=== PATIENT | male | born 1935 ===

== ENCOUNTER 2016-07-09 17:11 | Inpatient (IN) | payer OTHER ==
[2016-07-09] MEDS ORDERED: Labetalol 5mg/ml (4ml) IVP STA (17:42)
--- NOTE | 2016-07-09 17:43 | CT ---
PROCEDURE: CT scan brain dated 07/09/2016 HISTORY: Code stroke. COMPARISON: None available. TECHNIQUE: Axial computed tomography images were obtained through the head/brain without intravenous contrast. Radiation dose: Total exam DLP = 1525.98 mGy-cm. This CT exam was performed using one or more of the following dose reduction techniques: Automated exposure control, adjustment of the mA and/or kV according to patient size, and/or use of iterative reconstruction technique. FINDINGS: HEMORRHAGE: No acute parenchymal, subarachnoid or extra-axial hemorrhage. BRAIN: Chronic infarcts are seen in the left posterior temporoparietal watershed zone with a larger chronic infarct left posterior frontoparietal region. In addition, moderate to fairly significant diffuse/confluent chronic periventricular white matter ischemic changes the seen extending peripherally into the deep and subcortical white matter both cerebral hemispheres. Scattered chronic appearing bilateral basal nuclei including coronal radiata lacunar type infarcts. Chronic right cerebellar infarct Note made of slight edematous appearance of the left middle cerebral artery ; rule out dense MCA sign. Consider followup MRI of the brain. Moderate atrophy. The vascular calcifications involving the carotid siphons. VENTRICLES: Ventricles are dilated due to atrophy however no evidence of obstructive hydrocephalus CALVARIUM: Calvarium is intact. PARANASAL SINUSES: There is near complete opacification left maxillary antrum with the areas of low increased density consistent with inspissated secretions. There is also a coarse calcification on as well. Findings consistent with chronic sinusitis however a superimposed fungal infection not excluded. Thickening and sclerosis posterolateral and anterolateral romero of the maxillary antrum consistent with chronic inflammation. Note made of unerupted molar tooth left posterior maxilla. MASTOID AIR CELLS: Unremarkable as visualized. No inflammatory changes. OTHER FINDINGS: None. IMPRESSION: Chronic infarct changes seen in the left posterior temporal parietal watershed zone, left posterior superior frontoparietal watershed zone with scattered bilateral basal nuclei lacunar type infarcts. Moderate to fairly significant chronic white matter ischemic changes. Chronic right cerebellar infarct. There is slightly dense appearance of the left middle cerebral artery; rule out dense MCA sign. Consider followup MRI of the brain. Moderate generalized volume loss. Findings discussed with Dr. Sandoval at approximately 5:30 p.m. with written down and read back verification.
[2016-07-09 17:48] LABS: BASO # 0.1 K/uL (0.0-0.2); BASO % 1.1 % (0.0-2.0); EOS # 0.5 K/uL (0.0-0.7); HEMATOCRIT 52.3 % (35.0-51.0); LYMPH # 1.7 K/uL (1.0-4.3); LYMPH % 17.4 % (20.0-40.0); MEAN CELL VOLUME 86.2 fl (80.0-94.0); MEAN CORPUSCULAR HEMOGLOBIN 27.4 pg (27.0-31.0); MEAN CORPUSCULAR HGB CONC 31.8 g/dL (33.0-37.0); MEAN PLATELET VOLUME 9.4 fl (7.2-11.7); MONO # 1.1 K/uL (0.0-0.8); MONO % 11.3 % (0.0-10.0); NEUT # 6.4 K/uL (1.8-7.0); NEUT % 65.2 % (50.0-75.0); NRBC % 0.2 % (0.0-0.0); RED CELL DISTRIBUTION WIDTH 16.1 % (11.5-14.5); WHITE BLOOD COUNT 9.8 K/uL (4.8-10.8)
--- NOTE | 2016-07-09 18:07 | ED PDOC ---
HPI:STROKE - Time Time: 17:18 - Historian Historian: Partner (), EMS - Chief Complaint Chief Complaint: Mental status change - Onset Date: 07/09/16 Time: 16:55 Onset: Hours (1; last seen well) - Timing Timing: Currently Symptomatic - Context Context: Home (found on floor of bedroom) - Associated Symptoms Associated symptoms:: Anticoagulant use (effient) - TPA Positive for Contraindication: No Reason tPA is not being Administered: other diagnosis possible besides CVA, NIHSS >24, possible seizure - Notes: Notes:: Ruslan Talbot is a 80 year old male, with a past medical history of known cerebrovascular accidents, hypertension, hypercholesterolemia, and cardia arrhythmia, who presents to the emergency department via EMS for the evaluation of altered mental status. As per patient's , patient collapsed 20 minutes prior to arriving to the ER, falling backwards. Before the incident, he was walking outside with his who states that he was in a normal state of wellness, ambulatory, alert, and oriented before collapsing, becoming incontinent of urine and altered. EMS report that patient has a left gaze preference and is hypertensive. 12L in field showed paced rhythm per EMS. Of note, patient takes Effient, antihypertensives, and Digoxin. Patient is allergic to Aspirin. HPI is limited due to patient's nonverbal state. Code stroke activated on eval on arrival. PMD: Non CPH Provider in [place] NIHSS Stroke Scale - How Severe is the Stroke Level of Consciousness: 2=Obtunded LOC to Questions: 2=Neither correct LOC to commands: 2=Neither correct Best Gaze: 1=Partial gaze palsy Visual: 2=Complete hemianopia Facial: 0=Normal Motor Arm - Left: 3=No effort against gravity (falls immediately) Motor Arm - Right: 3=No effort against gravity (falls immediately) Motor Leg - Left: 3=No effort against gravity (falls immediately) Motor Leg - Right: 3=No effort against gravity (falls immediately) Limb Ataxia: 2=Present both Sensory: 1=Mild to moderate loss Best Language: 3=Mute Dysarthia: 2=Severe, near unintelligible or worse Extinction & Inattention (Neglect): 1=Partial neglect (mild edna-attention) Score: 30 rTPA Inclusion/Exclusion - Refusal of Treatment Patient Refused Treatment: No - Inclusion Criteria for Altepase Patient is 18 years or Older: Yes The Clinical Diagnosis of Ischemic Stroke That is Causing a Potentially Disabling Neurological Deficit: Yes Time of Onset is Well Established to be Less Than 270 Minute Before Treatment Would Begin: Yes Risk/Benefit Discussed With Patient/Family Member Present: Yes - Exclusion Criteria for Altepase Uncontrolled Hypertension at Time of Treatment (Systolic BP above 185 or Diastolic BP above 110 mmHg): Yes Evidence of an Intracranial Hemorrhage: No Evidence of Major Acute Infarct With Signs Greater Than 1/3 MCA Territory: Yes - Warning to TPA With Conditions Additional Condition (For 3-4.5 Hour Window): Any anticoagulant use prior to admission (Even if INR less than 1.7), NIHSS Above 25 Past Medical History Reviewed: Historical Data, Nursing Documentation, Vital Signs Vital Signs: Last Vital Signs Temp 98.6 F 07/09/16 17:38 Pulse 60 07/09/16 17:38 Resp 28 H 07/09/16 17:38 BP 210/121 H 07/09/16 17:38 Pulse Ox 99 07/09/16 17:38 - Medical History PMH: Cardia Arrhythmia, CVA, HTN, Hypercholesterolemia - Surgical History Surgical History: Pacemaker - Family History Family History: States: No Known Family Hx - Social History Current smoker - smoking cessation education provided: No Ex-Smoker (has not smoked in the last 12 months): No Alcohol: Occasional Drugs: Denies - Home Medications Home Medications: Ambulatory Orders Medication Instructions Recorded Atorvastatin [Lipitor] 20 mg PO DAILY 07/09/16 Digoxin [Lanoxin] 125 mcg PO DAILY 07/09/16 Enalapril Maleate [Vasotec] 5 mg PO DAILY 07/09/16 Furosemide [Lasix] 40 mg PO DAILY 07/09/16 Isosorbide Mononitrate [Imdur] 30 mg PO DAILY 07/09/16 Levothyroxine [Synthroid] 75 mcg PO DAILY 07/09/16 Montelukast [Singulair] 10 mg PO DAILY 07/09/16 Prasugrel [Effient] 10 mg PO DAILY 07/09/16 Ranitidine HCl [Zantac] 300 mg PO DAILY 07/09/16 - Allergies Allergies/Adverse Reactions: Allergies Allergy/AdvReac Type Severity Reaction Status Date / Time No Known Allergies Allergy Verified 07/09/16 17:18 Review of Systems Review Of Systems: ROS cannot be obtained secondary to pt's inabilty to answer questions. (ROS limited due to altered mental status) Cardiovascular: Negative for: Chest Pain Neurological: Positive for: Altered Mental Status, Other (stroke). Negative for : Weakness, Headache Physical Exam - Reviewed Nursing Documentation Reviewed: Yes Vital Signs Reviewed: Yes - Physical Exam Appears: Positive for: In Acute Distress (obtunded but maintaining airway) Head Exam: Positive for: ATRAUMATIC, NORMAL INSPECTION, NORMOCEPHALIC Skin: Positive for: Normal Color, Warm, DRY Eye Exam: Positive for: EOMI, Normal appearance, PERRL ENT: Positive for: Normal ENT Inspection Neck: Positive for: Normal, Painless ROM Cardiovascular/Chest: Positive for: Regular Rate, Rhythm Respiratory: Positive for: CNT, Normal Breath Sounds Pulses-Radial (L): 2+ Pulses-Radial (R): 2+ Gastrointestinal/Abdominal: Positive for: Bowel Sounds, Soft. Negative for: Tenderness, Guarding Back: Positive for: Normal Inspection Extremity: Positive for: Normal ROM, Swelling (trace b/l LE edema). Negative for: Deformity DTR - Knee (R): 1+ DTR - Knee (L): 1+ Neurologic/Psych: Positive for: Alert (intermittently), prestidigitator II-XII (no facial asymmetry), Motor/Sensory Deficits (+symmetric withdrawl to pain, reflexes diminshed b/l patellar; initial L gaze preference but resolved.), Aphasia. Negative for: Oriented, Facial Droop - Laboratory Results Result Diagrams: 07/09/16 17:39 07/09/16 20:00 - ECG ECG: Positive for: Interpreted By Me Interpretation Of ECG: paced rhythm O2 Sat by Pulse Oximetry: 99 (RA) Pulse Ox Interpretation: Normal - Radiology X-Ray: Interpreted by Me X-Ray Interpretation: Other (+pacer\) - Critical Care Total Time (In Min): 75 Comments: pt required immediate and sustained bedside attention due to AMS and unstable vital signs Medical Decision Making Medical Decision Makin:18 Initial Impression: Cerebrovascular accident vs seizure vs metabolic derangement vs cardiac arrythmia with anoxia vs other Initial Plan: * Code Stroke * CT Head and Neck Bundle * Chest X-Ray * EKG * Type and Screen * CBC * CMP (x2) * PT/PTT * Hemoglobin A1C * Lipid Panel * Troponin I * Digoxin * Trandate 20 mg IVP * Glucose, Blood, POC * Swallow Evaluation 17:25 Stroke alert initiated. Discussed case with neurologist Dr Orellana who recommends CT Angiogram given patient's presentation. Patient is not a candidate for MRI due to pacemaker placement. CT brain d/w radiologist. CTA brain/neck d/w radiologist no evidence of large vessel occlusion. Dr Orellana stroke neurologist in ED, unclear etiology, possible nonconvulsive seizure vs CVA, ativan 2mg given on rec neurology, not TPA or interventional candidate. Needs EEG, neurology to arrange. Dr Orellana recommended loading plavix 300mg via NGT as allergic to ASA, already taking effient. Labetolol given for marked hypertension, Dr Orellana states permissive hypertension for now, BP 180- 200systolic ok. On re-eval will open eyes to command but follows commands intermittently. No facial droop. Equal/symmetric strength upper extremities. Case d/w daughter and . Labs reviewed, etoh neg, WBC normal, trop neg. Initial K+ elevated but hemolyzed. Admit Dr Sandoval ICU for further care. Scribe Attestation: Documented by Ez Ray, acting as a scribe for Abelardo Sandoval III, MD. Provider Scribe Attestation: All medical record entries made by the Scribe were at my direction and personally dictated by me. I have reviewed the chart and agree that the record accurately reflects my personal performance of the history, physical exam, medical decision making, and the department course for this patient. I have also personally directed, reviewed, and agree with the discharge instructions and disposition. Disposition - Clinical Impression Clinical Impression: Altered mental status - Patient ED Disposition Is Patient to be Admitted: Yes Counseled Patient/Family Regarding: Studies Performed - Disposition Disposition Time: 19:45 Condition: STABLE - Pt Status Changed To: Hospital Disposition Of: Inpatient - Admit Certification Admit to Inpatient:: After my assessment, the patient will require hospitalization for at least two midnights. This is because of the severity of symptoms shown, intensity of services needed, and/or the medical risk in this patient being treated as an outpatient. - POA Present On Arrival: Falls Or Trauma
[2016-07-09 18:08] LABS: ALB/GLOB RATIO 1.1 (1.0-2.1); ALKALINE PHOSPHATASE 113 U/L (38-126); AST/SGOT 67 U/L (17-59); BILIRUBIN,TOTAL 1.9 mg/dl (0.2-1.3); BLOOD UREA NITROGEN 25 mg/dl (9-20); CALCIUM 9.3 mg/dL (8.4-10.2); CARBON DIOXIDE 23 mmol/L (22-30); CHLORIDE 106 mmol/L (98-107); CHOLESTEROL 209 mg/dL (0-199); GFR AFRICAN-AMERICAN > 60; GLUCOSE,RANDOM 108 mg/dL (75-110); SODIUM 140 mmol/l (132-148); TOTAL PROTEIN 9.4 G/DL (6.3-8.2)
[2016-07-09 18:10] LABS: ALT/SGPT < 6 U/L (21-72)
[2016-07-09 18:25] LABS: POTASSIUM 6.8 MMOL/L (3.6-5.0)
--- NOTE | 2016-07-09 18:40 | CT ---
PROCEDURE: CT Angiography of the Brain. HISTORY: AMS COMPARISON: Comparison is made to the previous CT of the head without contrast done on the same day TECHNIQUE: CT angiography of the intracranial arteries was performed. Coronal and sagittal maximum intensity projection reformated images were generated. This CT exam was performed using one or more of the following dose reduction techniques: Automated exposure control, adjustment of the mA and/or kV according to patient size, and/or use of iterative reconstruction technique. FINDINGS: INTERNAL CEREBRAL ARTERIES: Diffuse irregularity and foci of calcifications seen suggestive of atherosclerotic disease. The skull base, petrous, cavernous and supraclinoid segments are bilaterally widely patient. ANTERIOR CEREBRAL ARTERIES: Unremarkable. A1 and A2 segments are widely patent. Smaller distal branches unremarkable, as visualized. MIDDLE CEREBRAL ARTERIES: Unremarkable. M1 and M2 segments are widely patent. Perisylvian branches grossly symmetric. POSTERIOR CIRCULATION: Basilar Artery: The basilar artery is small in size. Distal Vertebral Arteries: The distal portion of the right vertebral artery is not visualized. Posterior Cerebral Arteries: Unremarkable. Posterior Inferior Cerebellar Arteries: Unremarkable. ANEURYSM/ VASCULAR MALFORMATIONS: None. OTHER FINDINGS: None. IMPRESSION: No evidence of seen stenosis or occlusion in the middle cerebral arteries. The distal left vertebral artery is not visualized. Small size basilar artery. [id number] atherosclerotic disease
--- NOTE | 2016-07-09 20:04 | CP.PCM.CON ---
History of Present Illness - History of Present Illness History of Present Illness: Mr. Talbot is a 80-year-old man with a past medical history of chronic left MCA territory stroke in the past, HTN, HLD, who is on Effient (allergic to aspirin). According to the patient's , he has been complaining of feeling unwell all day. They were out shopping and then returned to their assisted living facility. They were in the elevator when he suddenly fell back and hit his head. She did not notice any convulsions, but he immediately became unresponsive. EMS was called and noted that he was incontinent of urine. He was brought to the ED, and was not responding to painful stimulus initially. His NIHSS was calculated to be a 32. He was not a candidate for IV tPA due to witnessed fall with possible seizure, and extremely high NIHSS. Furthermore, his BP on presentation was 220/120 mm Hg. He was given labetelol and started to improve. He moved all his extremities to painful stimulus and was able to sit up for the chest X-ray. He opened his eyes and did not have any significant asymmetry. He was given 2 mg of ativan without a significant response. Review of Systems - Review of Systems Systems not reviewed;Unavailable: Altered Mental Status All systems: reviewed and no additional remarkable complaints except Past Patient History - Past Social History Alcohol: Occasional Drugs: Denies - CARDIAC Hx Cardia Arrhythmia: Yes Hx Hypercholesterolemia: Yes Hx Hypertension: Yes Hx Pacemaker: Yes - NEUROLOGICAL Other/Comment: stroke in [place] - PSYCHIATRIC Hx Substance Use: No - SURGICAL HISTORY Other/Comment: pacemaker Meds Allergies/Adverse Reactions: Allergies Allergy/AdvReac Type Severity Reaction Status Date / Time No Known Allergies Allergy Verified 07/09/16 17:18 Physical Exam - Constitutional Appears: Confused - Head Exam Head Exam: ATRAUMATIC, NORMAL INSPECTION, NORMOCEPHALIC - Eye Exam Eye Exam: EOMI, Normal appearance, PERRL - ENT Exam ENT Exam: Mucous Membranes Moist, Normal Exam - Neck Exam Neck exam: Positive for: Normal Inspection - Respiratory Exam Respiratory Exam: Clear to Auscultation Bilateral, NORMAL BREATHING PATTERN - Cardiovascular Exam Cardiovascular Exam: REGULAR RHYTHM, +S1, +S2 - Neurological Exam Additional comments: Opens eyes to voice, does not follow commands, withdraws all extremities to pain (more on the right), no facial asymmetry noted, upgoing plantar response on the right. Reflexes are normal. - Skin Skin Exam: Dry, Intact, Normal Color, Warm Results - Vital Signs Recent Vital Signs: Last Vital Signs Temp 98.6 F 07/09/16 17:38 Pulse 60 07/09/16 18:34 Resp 28 H 07/09/16 18:34 BP 176/95 H 07/09/16 18:34 Pulse Ox 99 07/09/16 18:38 - Labs Result Diagrams: 07/09/16 17:39 07/09/16 17:39 Labs: Laboratory Results - last 24 hr 07/09/16 07/09/16 07/09/16 17:39 17:39 18:13 WBC 9.8 RBC 6.07 H Hgb 16.6 Hct 52.3 H MCV 86.2 MCH 27.4 MCHC 31.8 L RDW 16.1 H Plt Count 155 MPV 9.4 Neut % (Auto) 65.2 Lymph % (Auto) 17.4 L [place] % (Auto) 11.3 H Eos % (Auto) 5.0 H Baso % (Auto) 1.1 Neut # 6.4 Lymph # 1.7 [place] # 1.1 H Eos # 0.5 Baso # 0.1 Sodium 140 Potassium 6.8 H* Chloride 106 Carbon Dioxide 23 Anion Gap 18 BUN 25 H Creatinine 1.1 Est GFR ( Amer) > 60 Est GFR (Non-Af Amer) > 60 Random Glucose 108 Calcium 9.3 Total Bilirubin 1.9 H AST 67 H ALT < 6 L Alkaline Phosphatase 113 Troponin I 0.0150 Total Protein 9.4 H Albumin 4.9 Globulin 4.5 H Albumin/Globulin Ratio 1.1 Triglycerides 217 H Cholesterol 209 H LDL Cholesterol Direct 138 H HDL Cholesterol 37 Digoxin 0.5 L BBK History Checked 07/09/16 18:48 WBC RBC Hgb Hct MCV MCH MCHC RDW Plt Count MPV Neut % (Auto) Lymph % (Auto) [place] % (Auto) Eos % (Auto) Baso % (Auto) Neut # Lymph # [place] # Eos # Baso # Sodium Potassium Chloride Carbon Dioxide Anion Gap BUN Creatinine Est GFR ( Amer) Est GFR (Non-Af Amer) Random Glucose Calcium Total Bilirubin AST ALT Alkaline Phosphatase Troponin I Total Protein Albumin Globulin Albumin/Globulin Ratio Triglycerides Cholesterol LDL Cholesterol Direct HDL Cholesterol Digoxin BBK History Checked No verified bt - Imaging and Cardiology CT scan - head Status: Image reviewed by me, Report reviewed by me (CT head shows chronic infarcts predominantly on the left side involving the posterior frontal and parietal regions. CTA of the head/neck does not show any occlusions.) Assessment & Plan (1) Acute encephalopathy Assessment and Plan: The differential diagnosis includes a large bihemispheric stroke, non- convulsive status epilepticus, acute hypertensive encephalopathy or toxic- metabolic encephalopathy. The patient cannot obtain an MRI due to his pacemaker. I recommend admission to the ICU for close observation, obtaining an EEG, giving 4 mg of Ativan, give 300 mg of Plavix, urine toxicology, urinalysis, CBC/CMP, TSH, repeat CT head in the AM. Thank you for this consultation. Status: Acute Priority: High
[2016-07-09 20:26] LABS: PARTIAL THROMBOPLASTIN TIME 25.4 SECONDS (23.3-32.5)
[2016-07-09 20:36] LABS: ALB/GLOB RATIO 1.1 (1.0-2.1); ALCOHOL SERUM < 10 mg/dl (0-10); ALKALINE PHOSPHATASE 119 U/L (38-126); ALT/SGPT 23 U/L (21-72); AST/SGOT 31 U/L (17-59); BILIRUBIN,TOTAL 0.5 mg/dl (0.2-1.3); BLOOD UREA NITROGEN 25 mg/dl (9-20); CALCIUM 9.4 mg/dL (8.4-10.2); CARBON DIOXIDE 21 mmol/L (22-30); CHLORIDE 106 mmol/L (98-107); GFR AFRICAN-AMERICAN > 60; GLUCOSE,RANDOM 181 mg/dL (75-110); POTASSIUM 4.5 MMOL/L (3.6-5.0); SODIUM 140 mmol/l (132-148); TOTAL PROTEIN 7.9 G/DL (6.3-8.2)
--- NOTE | 2016-07-09 21:55 | CP.PCM.HP ---
History of Present Illness - History of Present Illness History of Present Illness: PCP: Not on staff Chief complaint: AMS HPI: The hx is obtained from the Patients brand ambassadors promotional sales, the EMS and the medical records, as the patient is unresponsive. He is a 80 years old male from [place] Here 2 weeks on vacation. He has hx of HTN, HLD Permanent Pacemaker in place and CVA. According to the Electric Track Switch Maintainer , he is normally alert walking and talking. On the day of admission he was in [facility] room talking when he fell back hitting his head and becoming unresponsive. No foaming at the mouth but EMS found him incontinent of urine. In the ED the patient had a NIHS score of 32 with a BP of 220/120mmHg and was treated with Labetalol. He was not a candidate for TPA. The patient responded to sternal rub by opening the eyes and eddie the facial muscles. PMH: Cardiac arrhythmia; HLD; HTN; CVA in [place]; Hypothyroidism - Asthma?; CHF?; PSH: Pacemaker insertion SH: Occasional Alcohol; Ex Smoker; No illegal drug use; Reside at an Assisted Living facility FH: Unknown family hx Allergies: ASA Medication: Lipitor; Lanoxin; Vasotec; Lasix; Imdur; Synthroid; Singulair; Santax; Effient Present on Admission - Present on Admission Any Indicators Present on Admission: No History of DVT/PE: No History of Uncontrolled Diabetes: No Urinary Catheter: No Decubitus Ulcer Present: No Review of Systems - Review of Systems Systems not reviewed;Unavailable: Altered Mental Status Review of Systems: Limited review of system as the patient is unresponsive Past Patient History - Past Social History Smoking Status: Former Smoker Chewing Tobacco Use: No Cigar Use: No Alcohol: Occasional Drugs: Denies Home Situation {Lives}: With Family - CARDIAC Hx Cardia Arrhythmia: Yes Hx Hypercholesterolemia: Yes Hx Hypertension: Yes Hx Pacemaker: Yes - PULMONARY Hx Respiratory Disorders: No (Unknown) - NEUROLOGICAL Hx Neurological Disorder: Yes Other/Comment: stroke in [place] - HEENT Hx HEENT Problems: No - RENAL Hx Chronic Kidney Disease: No - ENDOCRINE/METABOLIC Hx Hypothyroidism: Yes - HEMATOLOGICAL/ONCOLOGICAL Hx Blood Disorders: No - INTEGUMENTARY Hx Dermatological Problems: No - MUSCULOSKELETAL/RHEUMATOLOGICAL Hx Musculoskeletal Disorders: No (Unknown) - GASTROINTESTINAL Hx Gastrointestinal Disorders: No - GENITOURINARY/GYNECOLOGICAL Hx Genitourinary Disorders: No - PSYCHIATRIC Hx Psychophysiologic Disorder: No Hx Substance Use: No - SURGICAL HISTORY Hx Surgeries: Yes Other/Comment: pacemaker - ANESTHESIA Hx Anesthesia: Yes Hx Anesthesia Reactions: No Meds Allergies/Adverse Reactions: Allergies Allergy/AdvReac Type Severity Reaction Status Date / Time No Known Allergies Allergy Verified 07/09/16 17:18 Physical Exam - Constitutional Appears: No Acute Distress - Head Exam Head Exam: ATRAUMATIC, NORMAL INSPECTION, NORMOCEPHALIC - Eye Exam Additional comments: Patient resisting at passive opening of eyes. Spontaneous opening of eyes to painful stimuli.Pupils 2mm recting sluggish to light - ENT Exam ENT Exam: Mucous Membranes Moist, Normal Exam, Normal External Ear Exam, Normal Oropharynx - Neck Exam Neck exam: Positive for: Full Rom, Normal Inspection. Negative for: Lymphadenopathy - Respiratory Exam Respiratory Exam: absent: Rales, Rhonchi, Wheezes - Cardiovascular Exam Cardiovascular Exam: REGULAR RHYTHM, RRR, +S1, +S2. absent: Gallop, JVD - GI/Abdominal Exam GI & Abdominal Exam: Normal Bowel Sounds, Soft. absent: Mass, Organomegaly - Rectal Exam Rectal Exam: Deferred - Extremities Exam Extremities exam: Positive for: pedal edema Additional comments: 2+ edema to both lower extremities - Back Exam Back exam: NORMAL INSPECTION - Neurological Exam Additional comments: Opens eyes to sternal rub, motor strength 1/5 at the right upper and right lower extremities. Tone conserved at both upper extremities, no facial droop. Plantar reflex is withdrawal in both feet right more than left. - Skin Skin Exam: Dry, Intact, Normal Color, Warm Results - Vital Signs Recent Vital Signs: Last Vital Signs Temp 98.6 F 07/09/16 17:38 Pulse 60 07/09/16 18:34 Resp 28 H 07/09/16 18:34 BP 176/95 H 07/09/16 18:34 Pulse Ox 99 07/09/16 18:38 - Labs Result Diagrams: 07/09/16 17:39 07/09/16 20:00 Labs: Laboratory Results - last 24 hr 07/09/16 07/09/16 07/09/16 17:39 17:39 17:39 WBC 9.8 RBC 6.07 H Hgb 16.6 Hct 52.3 H MCV 86.2 MCH 27.4 MCHC 31.8 L RDW 16.1 H Plt Count 155 MPV 9.4 Neut % (Auto) 65.2 Lymph % (Auto) 17.4 L Marinette % (Auto) 11.3 H Eos % (Auto) 5.0 H Baso % (Auto) 1.1 Neut # 6.4 Lymph # 1.7 Marinette # 1.1 H Eos # 0.5 Baso # 0.1 PT 11.5 H INR 1.11 H APTT 25.4 Sodium 140 Potassium 6.8 H* Chloride 106 Carbon Dioxide 23 Anion Gap 18 BUN 25 H Creatinine 1.1 Est GFR ( Amer) > 60 Est GFR (Non-Af Amer) > 60 Random Glucose 108 Calcium 9.3 Total Bilirubin 1.9 H AST 67 H ALT < 6 L Alkaline Phosphatase 113 Troponin I 0.0150 Total Protein 9.4 H Albumin 4.9 Globulin 4.5 H Albumin/Globulin Ratio 1.1 Triglycerides 217 H Cholesterol 209 H LDL Cholesterol Direct 138 H HDL Cholesterol 37 Digoxin Alcohol, Quantitative BBK History Checked 07/09/16 07/09/16 07/09/16 18:13 18:48 20:00 WBC RBC Hgb Hct MCV MCH MCHC RDW Plt Count MPV Neut % (Auto) Lymph % (Auto) Marin[place] % (Auto) Eos % (Auto) Baso % (Auto) Neut # Lymph # Marinette # Eos # Baso # PT INR APTT Sodium 140 Potassium 4.5 Chloride 106 Carbon Dioxide 21 L Anion Gap 18 BUN 25 H Creatinine 1.1 Est GFR ( Amer) > 60 Est GFR (Non-Af Amer) > 60 Random Glucose 181 H Calcium 9.4 Total Bilirubin 0.5 AST 31 ALT 23 Alkaline Phosphatase 119 Troponin I Total Protein 7.9 Albumin 4.2 Globulin 3.7 Albumin/Globulin Ratio 1.1 Triglycerides Cholesterol LDL Cholesterol Direct HDL Cholesterol Digoxin 0.5 L Alcohol, Quantitative < 10 BBK History Checked No verified bt - EKG Data EKG comments: Regular paced and captured beats 60/min - Imaging and Cardiology Chest x-ray Status: Image reviewed by me Additional comment: Bilateral lung congestion. Pacemaker at left chest wall with leads to the right Atrium and right Ventricle CT scan - head Status: Image reviewed by me, Report reviewed by me Additional comment: Chronic infarct at left posterior tempo-parietal Chronic right Cerebellar infarct Head and Neck CTA Status: Report reviewed by me Additional comment: No stenosis in middle cerebral artery. Assessment & Plan - Assessment and Plan (Free Text) Assessment: #.AMS #. Acute Hypertensive encephalopathy #. Dehydration #. Hypothyroidism #. r/o CHF #. Chronic Cerebro vascular disease Plan: 80 years old male from [place] Here 2 weeks on vacation. He has hx of HTN, HLD Permanent Pacemaker in place and CVA. According to the Electric Track Switch Maintainer , he is normally alert walking and talking. On the day of admission he was in the room talking when he fell back hitting his head and becoming unresponsive. In the ED the patient had a BP of 220/120mmHg and was treated with Labetalol. He was not a candidate for TPA. #.AMS Probably secondary to a Seizure vs CVA - Dr Orellana neurology consult is Appreciated - Admit to ICU - Neuro checks Q2 hrs - EEG to r/o Seizure activity - Follow Repeat CT head #. Acute Hypertensive encephalopathy - Treat Blood pressure If SBP>180 and DBP>110 -Follow Blood pressures #. Dehydration - Follow renal labs - Hold Lasix at present #. Hypothyroidism - Synthroid - Follow Synthroid #. r/o CHF in patint with Leg edema, X Ray chest with bilateral infiltrates, and on medication used in CHF - Consult Dr Douglas Cardiology - Continue Vasotec, Imdur, - Hold Lasix #. Chronic Cerebro vascular disease - Lipitor - Plavix as patient is allergic to ASA. No Effient on formulary #. Stress ulcer prophylaxis with Pepcid #. DVT Prophylaxis with SCD #. Code Status: Full - Date & Time Date: 07/09/16 Time: 21:55
[2016-07-09 23:40] VITALS: BMI 24.7
[2016-07-10] MEDS: Dextrose 5%/0.45% NS 1,000 ML IV SCH (02:00)
[2016-07-10] MEDS: EnalaprilAT 1.25 mg/ml Inj IV SCH ×4 (04:00→21:56)
[2016-07-10 05:29] LABS: HEMATOCRIT 49.2 % (35.0-51.0); MEAN CELL VOLUME 85.4 fl (80.0-94.0); MEAN CORPUSCULAR HEMOGLOBIN 27.1 pg (27.0-31.0); MEAN CORPUSCULAR HGB CONC 31.7 g/dL (33.0-37.0); RED CELL DISTRIBUTION WIDTH 16.5 % (11.5-14.5); WHITE BLOOD COUNT 12.4 K/uL (4.8-10.8)
[2016-07-10 05:33] LABS: BLOOD UREA NITROGEN 23 mg/dl (9-20); CALCIUM 9.5 mg/dL (8.4-10.2); CARBON DIOXIDE 21 mmol/L (22-30); CHLORIDE 107 mmol/L (98-107); GFR AFRICAN-AMERICAN > 60; GLUCOSE,RANDOM 168 mg/dL (75-110); POTASSIUM 4.3 MMOL/L (3.6-5.0); SODIUM 142 mmol/l (132-148)
[2016-07-10] MEDS: Levothyroxine 100 mcg (0.1 mg) Inj IVP SCH (05:40)
[2016-07-10 06:00] LABS: THYROID STIMULATING HORMONE 0.73 mIU/ML (0.46-4.68)
--- NOTE | 2016-07-10 09:08 | CP.CCUPN ---
CCU Subjective - Physician Review Subjective (Free Text): LAND DEPARTMENT HEAD PROGRESS NOTE Patient examined, interim events reviewed: Awake and stares at me, nonverbal and non-interactive to verbal commands or questions, even via hvac commercial salesperson. NGT in place, no vomiting, no cough, no other distress noted. Afebrile, SBP 160s to 180s, HR 60 paced, RR 22, SPO2 98 % on NC. I/Os last 12H = 178/500ml. NGT placed in ER for enteral route medication administration. ROS: All pertinent Nursing notes and all other 10+ systems reviewed: otherwise as above. PMSFH: No other new pertinent information relative to current medical problems noted. No other distress noted: EXAM- HEENT: no icterus, pupils midline, equal and reactive, no nystagmus NECK: no visible JVD, supple, carotids equal upstroke bilat/no bruits, no neck tenderness CHEST: decreased BS bases, no wheezes audible. HEART: regular, distant, S1S2, no murmur audible, no rubs. ABD: soft, flat, no increased distention, no focal tenderness, no HSM. BS hypoactive. EXT: +2 LE edema, no peripheral/ digital cyanosis, no calf tenderness or palpable cords, distal pulses intact and symmetrical, SCDs on bilaterally. NEURO: withdraws all extremities to pain stimulus SKIN: no rashes LABS: WBC= 12.4 HGB= 15.6 PLTs = 138K Coags: acceptable Na= 142 K= 4.3 CL= 107 HCO3= 21 BUN/Cr= 23/1.0 BS= 168 Urine tox negative Assessment: 1. AMS after a Fall 2. Accelerated Hypertension with possible Encephalopathy 3. r/o NCSE, CVA, other SPORTS MANAGER infection / Encephalitis 4. Mild Azotemia, r/o Rhabdomyolysis 5. h/o PPM , Hypertensive Heart Disease, Hypothyroidism PLAN: 1. Consider repeat CT Brain imaging for any delayed acute pathology. 2. On Effient anti-platelet therapy, would continue for now if repeat CT Brain is negative. 3. BP levels currently at satisfactory and acceptable reduction levels in the interim; as compared to admission BP levels with SBP above 200s. No further treatment unless MAP exceeds 120. 4. ECHO, EEG. 5. Maintain neurochecks, seizure precautions, HOB elevation, airway self- protect mechanisms intact. 6. Check and monitor serial CPK levels. If significantly elevated, cautious IVF hydration.
[2016-07-10] MEDS: Digoxin 500 mcg/2ml (0.5 mg/2ml) Inj IVP SCH (10:02)
[2016-07-10 10:27] LABS: ABG ALLEN TEST YES; ARTERIAL BLOOD GAS HCO3 24.8 mmol/L (21-28); ARTERIAL BLOOD GAS PH 7.42 (7.35-7.45); ARTERIAL BLOOD GAS PO2 94 mm/Hg (80-100)
--- NOTE | 2016-07-10 13:36 | RAD ---
HISTORY: AMS COMPARISON: No prior. FINDINGS: LUNGS: Bilateral interstitial prominence, question acute versus chronic. PLEURA: No significant pleural effusion identified, no pneumothorax apparent. CARDIOVASCULAR: Pacemaker and leads in place. OSSEOUS STRUCTURES: No significant abnormalities. VISUALIZED UPPER ABDOMEN: Normal. OTHER FINDINGS: None. IMPRESSION: Bilateral interstitial prominence, question acute versus chronic.
--- NOTE | 2016-07-10 13:39 | RAD ---
HISTORY: NGT confirm COMPARISON: No prior. FINDINGS: LUNGS: Mild bilateral interstitial prominence. PLEURA: No significant pleural effusion identified, no pneumothorax apparent. CARDIOVASCULAR: Normal. Pacemaker and leads in place. OSSEOUS STRUCTURES: No significant abnormalities. VISUALIZED UPPER ABDOMEN: Normal. OTHER FINDINGS: None. IMPRESSION: Mild bilateral pulmonary interstitial prominence.
--- NOTE | 2016-07-10 14:17 | CT ---
PROCEDURE: CT HEAD WITHOUT CONTRAST. HISTORY: AMD/Unresponsiveness COMPARISON: Comparison made with CT scan of the brain 07/09/2016. TECHNIQUE: Axial computed tomography images were obtained through the head/brain without intravenous contrast. Radiation dose: Total exam DLP = 1669.36 mGy-cm. This CT exam was performed using one or more of the following dose reduction techniques: Automated exposure control, adjustment of the mA and/or kV according to patient size, and/or use of iterative reconstruction technique. FINDINGS: HEMORRHAGE: No acute parenchymal, subarachnoid or extra-axial hemorrhage. BRAIN: 1st VENTRICLES: Unremarkable. No hydrocephalus. CALVARIUM: No acute calvarial fractures. PARANASAL SINUSES: Unremarkable as visualized. No significant inflammatory changes. MASTOID AIR CELLS: Unremarkable as visualized. No inflammatory changes. OTHER FINDINGS: Re- demonstrated are changes of bilateral cataract surgery. IMPRESSION: Large acute infarct involving branches of the which appears to predominantly involve of branches of the left anterior and to a lesser degree left middle cerebral arteries. The aforementioned large acute infarct and its attendant cytotoxic edema result in the overlying sulcal effacement and mild compression of the left lateral ventricle particularly the left frontal horn. Re- demonstrated are large chronic infarct changes in the left posterior frontoparietal region near the vertex as well as slightly smaller chronic infarct left posterior temporoparietal watershed zone. Chronic right cerebellar infarct also noted. Additionally, moderate chronic periventricular white matter ischemic changes and chronic bilateral basal nuclei lacunar type infarcts also again noted.
--- NOTE | 2016-07-10 14:51 | CP.PCM.PN ---
Subjective - Date & Time of Evaluation Date of Evaluation: 07/10/16 Time of Evaluation: 13:00 - Subjective Subjective: Mr. Talbot was seen and examined this morning at bedside in the ICU. He continued to have no meaningful communication and very little response to painful stimulus. NIHSS was over 27. I reviewed the EEG results, which showed left side slowing and several sharp wave discharges. Repeat CT head showed a large area of new left MCA infarct. Objective - Vital Signs/Intake and Output Vital Signs (last 24 hours): Temp Pulse Resp BP Pulse Ox 99 F 60 24 176/78 H 97 07/10/16 08:00 07/10/16 08:00 07/10/16 08:00 07/10/16 10:05 07/10/16 08:00 Intake and Output: 07/10/16 07/10/16 06:59 18:59 Intake Total 178 Output Total 500 Balance -322 - Medications Medications: Current Medications Atorvastatin Calcium (Lipitor) 20 mg PO DAILY [facility] Last Admin: 07/10/16 10:04 Dose: 20 mg Clopidogrel Bisulfate (Plavix) 75 mg PO DAILY [facility] Last Admin: 07/10/16 10:04 Dose: Not Given Digoxin (Lanoxin) 0.125 mg IVP DAILY [facility] Last Admin: 07/10/16 10:02 Dose: 0.125 mg Enalaprilat (Vasotec Iv) 1.25 mg IV Q6 [facility] Last Admin: 07/10/16 10:05 Dose: Not Given Famotidine (Pepcid) 20 mg IVP Q12 [facility] Dextrose/Sodium Chloride (Dextrose 5%/0.45% Ns 1000 Ml) 1,000 mls @ 42 mls/hr IV .[id number] [facility] Stop: 07/10/16 23:36 Last Admin: 07/10/16 02:00 Dose: 42 mls/hr Isosorbide Mononitrate (Imdur) 30 mg PO DAILY [facility] Last Admin: 07/10/16 10:02 Dose: 30 mg Levothyroxine Sodium (Synthroid) 35 mcg IVP DAILY@0630 [facility] Montelukast Sodium (Singulair) 10 mg NG DAILY [facility] Last Admin: 07/10/16 10:04 Dose: 10 mg - Labs Labs: 07/10/16 04:25 07/10/16 04:25 PT 11.5 SECONDS (9.6-11.2) H 07/09/16 17:39 INR 1.11 (0.92-1.08) H 07/09/16 17:39 APTT 25.4 SECONDS (23.3-32.5) 07/09/16 17:39 - Neurological Exam Additional comments: Neurologically unchanged with little movement to painful stimulus, increased lethargy with preserved breathing, eye movements and brainstem reflexes. NIHSS > 28, similar to yesterday's initial examination. Assessment and Plan (1) Acute ischemic left MCA stroke Assessment & Plan: The patient has a large left MCA hemispheric ischemic stroke involving more than 1/2 the territory and a previous chronic left parietal infarct. There is slight midline shift, but I do not recommend hypertonics at this time. Continue antiplatelet agents and obtain a repeat head CT in 12 hours to evaluate. Continue monitoring serum sodium and osmolarity and maintain serum sodium in the 140-145 range. Q2 hour neurological exams are recommended. Status: Acute
--- NOTE | 2016-07-10 18:08 | CP.PCM.PN ---
Subjective - Date & Time of Evaluation Date of Evaluation: 07/10/16 Time of Evaluation: 14:00 - Subjective Subjective: Patient was seen and examined bedside. Keeping eyes closed , opens them spontaneously , pupils 2 mm bilateral slugish reaxctive to light . Not verbal , not following any commands Withdrawing to painful stimuli . maintaining his airway with o2Sat 98 % on 2 L O2 via NC Paced SR on monitor HR 60 , SBP ranging 176-[address] head showed New Large acute infarct involving branches of the left anterior and t left middle cerebral arteries with edema . Objective - Vital Signs/Intake and Output Vital Signs (last 24 hours): Temp Pulse Resp BP Pulse Ox 98.4 F 60 13 167/83 H 98 07/10/16 16:00 07/10/16 16:00 07/10/16 16:00 07/10/16 16:00 07/10/16 16:00 Intake and Output: 07/10/16 07/10/16 06:59 18:59 Intake Total 178 504 Output Total 500 500 Balance -322 4 - Medications Medications: Current Medications Atorvastatin Calcium (Lipitor) 20 mg PO DAILY [facility] Last Admin: 07/10/16 10:04 Dose: 20 mg Clopidogrel Bisulfate (Plavix) 75 mg PO DAILY [facility] Last Admin: 07/10/16 15:37 Dose: 75 mg Digoxin (Lanoxin) 0.125 mg IVP DAILY [facility] Last Admin: 07/10/16 10:02 Dose: 0.125 mg Enalaprilat (Vasotec Iv) 1.25 mg IV Q6 [facility] Last Admin: 07/10/16 15:38 Dose: Not Given Famotidine (Pepcid) 20 mg IVP Q12 [facility] Last Admin: 07/10/16 15:37 Dose: 20 mg Dextrose/Sodium Chloride (Dextrose 5%/0.45% Ns 1000 Ml) 1,000 mls @ 42 mls/hr IV .[id number] [facility] Stop: 07/10/16 23:36 Last Admin: 07/10/16 02:00 Dose: 42 mls/hr Isosorbide Mononitrate (Imdur) 30 mg PO DAILY [facility] Last Admin: 07/10/16 10:02 Dose: 30 mg Levothyroxine Sodium (Synthroid) 35 mcg IVP DAILY@0630 [facility] Montelukast Sodium (Singulair) 10 mg NG DAILY [facility] Last Admin: 07/10/16 10:04 Dose: 10 mg - Labs Labs: 07/10/16 04:25 07/10/16 04:25 PT 11.5 SECONDS (9.6-11.2) H 07/09/16 17:39 INR 1.11 (0.92-1.08) H 07/09/16 17:39 APTT 25.4 SECONDS (23.3-32.5) 07/09/16 17:39 - Constitutional Appears: No Acute Distress, Other (non verbal, not following any commands, maintaining his airway) - Head Exam Head Exam: ATRAUMATIC, NORMOCEPHALIC - Eye Exam Eye Exam: PERRL (2 mm bilaterally slugishly responsive) - ENT Exam ENT Exam: Mucous Membranes Dry, Normal Exam - Neck Exam Neck Exam: Normal Inspection - Respiratory Exam Respiratory Exam: Clear to Ausculation Bilateral, NORMAL BREATHING PATTERN. absent: Wheezes, Respiratory Distress - Cardiovascular Exam Cardiovascular Exam: REGULAR RHYTHM, +S1, +S2. absent: JVD - GI/Abdominal Exam GI & Abdominal Exam: Soft. absent: Distended, Guarding, Tenderness, Rebound - Rectal Exam Rectal Exam: Deferred - Extremities Exam Extremities Exam: Normal Capillary Refill, Pedal Edema (1+ bilaterally ) Additional comments: pulses present bilaterally - Neurological Exam Neuro motor strength exam: Left Upper Extremity: 3, Right Upper Extremity: 2/1, Left Lower Extremity: 3, Right Lower Extremity: 2/1 Additional comments: unresponsive, non verbal, not following any commands opens eyes spontaneously tonus present to all 4 extremities babinsky up going to both LE Right facial droop - Skin Skin Exam: Intact, Normal Color, Warm Assessment and Plan - Assessment and Plan (Free Text) Assessment: 80 years old male from [place] Here 2 weeks on vacation with PMH of HTN, HLD Permanent Pacemaker in place and Left CVA,brought to ER for eval for AMS / unresponsiveness after fall .According to the Seed Pelleter , he is normally alert walking and talking. On the day of admission he was in the room talking when he fell back hitting his head and becoming unresponsive. In the ED the patient had a BP of 220/120mmHg and was treated with Labetalol.Initial CT head showed old left CVA . Neurology was consulted and was determined that patient was not a candidate for tPA. At present not verbal , not following any commands , maintaining his airway 1. Acute Left CVA repeat CT head showed large acute infarct involving anterior and left middle cerebral artery with edema AMS Probably secondary to CVA Neurology recommendations appreciated. Continue to maintain SBP 170 Neurochecks Q2 [address] head in AM Continue plavix , statin patient is allergic to ASA Keep HOB elevated NGT in place maintaining airway for bnow. Continue o2 via NC follow up Echo 2.Accelerated Hypertension allow permissive hypertension SBP 170 3. Azotemia/ dehydration Hold Lasix at present 4. Hypothyroidism on Synthroid TSH controlled 5. r/o CHF follow up echo cardiology consulted continue digoxin IV 6. Chronic Cerebro vascular disease on Lipitor started Plavix since Effient is not formulary patient is allergic to ASA 7. Stress ulcer prophylaxis Pepcid 8. DVT Prophylaxis SCD and lovenox
--- NOTE | 2016-07-10 18:40 | CON ---
DATE: 07/10/2016 REASON FOR CONSULTATION: Cardiomyopathy as well as acute CVA. HISTORY OF PRESENT ILLNESS: The patient is a 80-year-old male who has a history of cardiomy opathy status post ICD placement ____ who was initially admitted because of altered mental status. A ccording to the patient's , the patient collapsed 20 minutes prior to his arrival to the Emergenc y Room, falling backward. Before the incident he was walking outside with his and he was fully oriented before collapsing. Repeat CT scan done today, which revealed a large acute infarct involvin g the branches of the left anterior and to a lesser degree the left middle cerebral arteries, got lar ge acute infarct and its attendant cytotoxic edema resulted in the overlying sulci effacement and mil d compression of the left lateral ventricle. There was also redemonstration of large chronic infarct changes in the left posterior front parietal region as well as slightly smaller chronic infarct in t he left posterior temporoparietal watershed zone. Chronic right cerebellar infarct also noted Addit ionally, chronic bilateral basilar nuclei lacunar type infarcts noted. The patient since admission t o ICU had no reported ventricular arrhythmia. He is in paced rhythm. MEDICATIONS: Imdur 30 mg once a day, digoxin 0.125 mg intravenously daily, Lipitor 20 mg once a day, Pepcid 20 mg intravenous twice a day, Plavix 75 mg once a day, Singulair 10 mcg daily, Synthroid 35 mcg intravenously daily, enalapril 1.25 mg intravenously q. 6 hours which is being withheld. Yesterd ay the patient received IV Trandate and Plavix 300 mg as a single dose. REVIEW OF SYSTEMS: No reported seizures. No reported hypotension. No reported ventricular tachycar carolyn during the patient's ICU stay overnight. PHYSICAL EXAMINATION: GENERAL: The patient is an elderly male who is lethargic, does not appear to be in respiratory distr ess. VITAL SIGNS: Blood pressure is 167/83, heart rate 60, temperature 98.4. earlier temperature was 99.9 , and respirations 13. HEENT: No pallor. NECK: No JVD. CHEST: Diminished breath sounds over the bases. HEART: S1, S2 regular. ABDOMEN: Soft. EXTREMITIES: 1+ pitting edema. LABORATORY DATA: CBC: WBC 12.4, hemoglobin 15.6, hematocrit 49.2, platelet count 138,000. Urine dr ug screen is negative. SMA-7: Sodium 142, potassium 4.3, chloride 107, CO2 21, glucose 168, BUN 23, creatinine 1.0. ProBNP is 4340, triglycerides 217. Total cholesterol 209, LDL cholesterol is 138 t he 3 are elevated. HDL cholesterol is within normal limits. INR is 1.11 and PTT 25.4. I did review the echo study which was consistent with cardiomyopathy. Chest x-ray could not be opened remotely, but the report stated mild congestion. EKG revealed ventricular paced rhythm at a rate of 60. Under lying rhythm is atrial fibrillation. ASSESSMENT: 1. Acute cerebrovascular accident involving the left anterior cerebral and to some extent the left m iddle cerebral arteries with multiple other infarcts in the left parietooccipital, intracerebellar as well as in the basal ganglia. 2. Atrial fibrillation, which is most likely a chronic one. 3. Cardiomyopathy. 4. Hypertension. RECOMMENDATIONS: Continue current IV digoxin. Other oral medications including Plavix, Lipitor need to be cleared by neurologist in view of current acute cerebrovascular accident and possible compromi se of the patient's swallow mechanism. In the meantime any significant anticoagulation has to be iam roved by the jewelry consultant neurologist. My own review of Dr. Orellana, the neurologist, ____ the patient h as a large left MCA hemispheric ischemic stroke involving more than half the territory and a previous chronic left parietal infarct. There is slight midline shift, but I do not recommend hypertonic at this time. Continue antiplatelet agents and obtain repeat CT scan at 12 hours to evaluate. I agree with the current neurological plan. Edin Douglas MD cc: [id number] TT: 07/10/2016 18:39:37 Confirmation # [id number] Dictation # [id number] wendy
[2016-07-10 23:33] LABS: RBC URINE 39 /hpf (0-3); URINE BILIRUBIN NEGATIVE (NEGATIVE); URINE BLOOD LARGE (NEGATIVE); URINE COLOR YELLOW (YELLOW); URINE GLUCOSE (UA) NEG (Normal); URINE KETONE NEGATIVE (NEGATIVE); URINE LEUKOCYTE ESTERASE NEG Leu/uL (Negative); URINE PROTEIN >=500 mg/dL (NEGATIVE); URINE URIC ACID CRYSTALS OCC /hpf (<OCC); URINE UROBILINOGEN 0.2-1.0 mg/dL (0.2-1.0); WBC URINE 8 /hpf (0-5)
[2016-07-11] MEDS: EnalaprilAT 1.25 mg/ml Inj IV SCH ×4 (04:00→21:30)
[2016-07-11] MEDS: Dextrose 5%/0.45% NS 1,000 ML IV SCH (04:00)
[2016-07-11 05:28] LABS: BASO # 0.1 K/uL (0.0-0.2); BASO % 0.4 % (0.0-2.0); EOS % 0.1 % (0.0-4.0); HEMATOCRIT 48.6 % (35.0-51.0); LYMPH # 0.8 K/uL (1.0-4.3); LYMPH % 5.1 % (20.0-40.0); MEAN CELL VOLUME 85.4 fl (80.0-94.0); MEAN CORPUSCULAR HEMOGLOBIN 27.5 pg (27.0-31.0); MEAN CORPUSCULAR HGB CONC 32.3 g/dL (33.0-37.0); MEAN PLATELET VOLUME 9.9 fl (7.2-11.7); MONO # 1.6 K/uL (0.0-0.8); NEUT # 13.6 K/uL (1.8-7.0); NEUT % 84.4 % (50.0-75.0); PLATELET COUNT 134 K/uL (130-400); RED CELL DISTRIBUTION WIDTH 15.9 % (11.5-14.5); WHITE BLOOD COUNT 16.2 K/uL (4.8-10.8)
[2016-07-11 05:34] LABS: ALB/GLOB RATIO 1.1 (1.0-2.1); ALKALINE PHOSPHATASE 92 U/L (38-126); ALT/SGPT 14 U/L (21-72); AST/SGOT 38 U/L (17-59); BILIRUBIN,TOTAL 1.5 mg/dl (0.2-1.3); BLOOD UREA NITROGEN 22 mg/dl (9-20); CALCIUM 9.4 mg/dL (8.4-10.2); CARBON DIOXIDE 21 mmol/L (22-30); CHLORIDE 108 mmol/L (98-107); GFR AFRICAN-AMERICAN > 60; GLUCOSE,RANDOM 129 mg/dL (75-110); POTASSIUM 4.2 MMOL/L (3.6-5.0); SODIUM 143 mmol/l (132-148); TOTAL PROTEIN 7.2 G/DL (6.3-8.2)
[2016-07-11] MEDS: Levothyroxine 100 mcg (0.1 mg) Inj IVP SCH (05:44)
[2016-07-11 07:05] LABS: FREE T4 1.62 ng/dL (0.78-2.19)
[2016-07-11 07:29] LABS: NEUTROPHIL 87 % (42-75); REACTIVE LYMPHOCYTES 2 % (0-0); TOTAL CELLS COUNTED 100
[2016-07-11] MEDS: Digoxin 500 mcg/2ml (0.5 mg/2ml) Inj IVP SCH (08:25)
[2016-07-11] MEDS ORDERED: Enoxaparin 40 mg Syringe SC SCH (09:00)
--- NOTE | 2016-07-11 09:04 | CP.PCM.PN ---
Subjective - Date & Time of Evaluation Date of Evaluation: 07/11/16 Time of Evaluation: 08:30 - Subjective Subjective: Low grade fever 100.4 Pt remains responsive only to pain by grimacing Maintaining his airway Objective - Vital Signs/Intake and Output Vital Signs (last 24 hours): Temp Pulse Resp BP Pulse Ox 100.4 F H 60 20 167/99 H 97 07/11/16 08:00 07/11/16 08:00 07/11/16 08:00 07/11/16 08:00 07/11/16 08:00 Intake and Output: 07/11/16 07/11/16 06:59 18:59 Intake Total 504 Output Total 450 Balance 54 - Medications Medications: Current Medications Atorvastatin Calcium (Lipitor) 20 mg PO DAILY [facility] Last Admin: 07/11/16 08:25 Dose: 20 mg Clopidogrel Bisulfate (Plavix) 75 mg PO DAILY [facility] Last Admin: 07/11/16 08:26 Dose: 75 mg Digoxin (Lanoxin) 0.125 mg IVP DAILY [facility] Last Admin: 07/11/16 08:25 Dose: 0.125 mg Enalaprilat (Vasotec Iv) 1.25 mg IV Q6 [facility] Last Admin: 07/11/16 04:00 Dose: Not Given Enoxaparin Sodium (Lovenox) 40 mg SC DAILY [facility] PRN Reason: Protocol Last Admin: 07/11/16 08:25 Dose: 40 mg Famotidine (Pepcid) 20 mg IVP Q12 [facility] Last Admin: 07/11/16 08:29 Dose: 20 mg Isosorbide Mononitrate (Imdur) 30 mg PO DAILY [facility] Last Admin: 07/11/16 08:25 Dose: 30 mg Levothyroxine Sodium (Synthroid) 35 mcg IVP DAILY@0630 [facility] Last Admin: 07/11/16 05:44 Dose: 35 mcg Montelukast Sodium (Singulair) 10 mg NG DAILY [facility] Last Admin: 07/11/16 08:26 Dose: 10 mg - Labs Labs: 07/11/16 04:25 07/11/16 04:25 PT 11.5 SECONDS (9.6-11.2) H 07/09/16 17:39 INR 1.11 (0.92-1.08) H 07/09/16 17:39 APTT 25.4 SECONDS (23.3-32.5) 07/09/16 17:39 - Constitutional Appears: No Acute Distress - Head Exam Head Exam: NORMAL INSPECTION, NORMOCEPHALIC - Eye Exam Eye Exam: Normal appearance, PERRL (sluggish) - ENT Exam ENT Exam: Mucous Membranes Dry, Normal External Ear Exam - Neck Exam Neck Exam: absent: Meningismus - Respiratory Exam Respiratory Exam: Rhonchi, NORMAL BREATHING PATTERN. absent: Wheezes, Respiratory Distress - Cardiovascular Exam Cardiovascular Exam: REGULAR RHYTHM, +S1, +S2 Additional comments: + Pacemaker - GI/Abdominal Exam GI & Abdominal Exam: Soft, Normal Bowel Sounds - Extremities Exam Extremities Exam: Normal Capillary Refill. absent: Pedal Edema - Neurological Exam Additional comments: responds to pain by grimacing - Psychiatric Exam Additional comments: Pt is obtunded - Skin Skin Exam: Dry, Normal Color, Warm Assessment and Plan - Assessment and Plan (Free Text) Assessment: 80 years old male from [place], arrived 2 weeks on vacation with PMH of HTN, HLD Permanent Pacemaker in place and Left CVA, brought to ER for eval for AMS / unresponsiveness after fall . According to the catering server , he is normally alert walking and talking. On the day of admission he was in the room talking when he fell back hitting his head and becoming unresponsive. In the ED the patient had a BP of 220/120mmHg and was treated with Labetalol. Initial CT head showed old left CVA . Neurology was consulted - patient was not a candidate for tPA. At present nonverbal , not following any commands , maintaining his airway . 1. Acute Left CVA repeat CT head showed large acute infarct involving anterior and left middle cerebral artery with edema AMS Probably secondary to CVA Neurology recommendations appreciated. Continue to maintain SBP 170 Neurochecks Q2 hours Started on plavix , statin patient is allergic to ASA rpt CT of the Head : hemorrhagic conversion- Plavix d/c today Keep HOB elevated NGT in place maintaining airway for now. Continue o2 via NC follow up Echo 2.Accelerated Hypertension allow permissive hypertension SBP 170 3. Azotemia/ dehydration Hold Lasix at present 4. Hypothyroidism on Synthroid TSH controlled 5. r/o CHF follow up echo cardiology consulted continue digoxin IV 6. Chronic Cerebro vascular disease on Lipitor was on Effient at home patient is allergic to ASA 7. Stress ulcer prophylaxis Pepcid 8. DVT Prophylaxis SCD and lovenox
--- NOTE | 2016-07-11 10:19 | CT ---
PROCEDURE: CT HEAD WITHOUT CONTRAST. HISTORY: f/o Stroke COMPARISON: Comparison made with prior study 07/10/2026 . TECHNIQUE: Axial computed tomography images were obtained through the head/brain without intravenous contrast. Radiation dose: Total exam DLP = 907.13 mGy-cm. This CT exam was performed using one or more of the following dose reduction techniques: Automated exposure control, adjustment of the mA and/or kV according to patient size, and/or use of iterative reconstruction technique. FINDINGS: HEMORRHAGE: Re- demonstrated is a large left CJ territory infarct with of apparent hemorrhagic conversion. There also appears to be a small discrete elliptical shaped T8 hemorrhage along posterior margin of the genu of the corpus callosum/septum pellucidum border. Small amount of hemorrhage is seen layering in the dependent portion of the atria/occipital horns. Large acute infarct exerts considerable mass effect with overlying sulcal effacement spot compression of the right ventricle particularly the frontal horn which is displaced posteriorly. . There is also mild to moderate [id number] midline shift estimated approximately 11.5 mm. . BRAIN: As above. There are also chronic appearing infarcts in the left posterior frontoparietal, left posterior temporoparietal watershed zone. Right cerebellar chronic infarct unchanged Mild chronic periventricular white matter ischemic changes. VENTRICLES: As above. CALVARIUM: No acute calvarial fractures. PARANASAL SINUSES: Unremarkable as visualized. No significant inflammatory changes. MASTOID AIR CELLS: Subtotal opacification left maxillary sinus. OTHER FINDINGS: In situ NGT. IMPRESSION: Interval hemorrhagic conversion large left CJ territory infarct there. Hemorrhage seen along the posterior margin corpus callosum/ septum pellucidum border. There is also hemorrhage seen layering in the dependent portion of the atria/occipital horns. The large infarct and attendant edema surrounding edema exert considerable mass effect with compression of the right cerebral hemisphere left ventricle, particularly the left frontal horn and [id number] midline shift. note these findings were discussed with Dr. Sampson of the ICU approximately 10:05 a.m. with written down and read back verification. Re- demonstrated are chronic appearing infarct within the supra and infratentorial compartments as detailed above unchanged from prior study so far as can be seen. Mild chronic periventricular white matter ischemic changes.
[2016-07-11] MEDS ORDERED: Sodium Chloride 3% 500 ML IV SCH ×2 (10:38→11:40)
--- NOTE | 2016-07-11 11:55 | CP.CCUPN ---
<EriccieratoriDavidbriana - Last Filed: 07/11/16 15:51> CCU Subjective - Physician Review Subjective (Free Text): 07/11/16 11:46 Patient seen and examined at bedside with ICU attending during morning rounds. Patient remains unresponsive to verbal or painful stimuli overnight. He had a fever of 100.4 but vital signs otherwise stable. Repeat CT head today detects signs of intracranial bleed. Discussed with neurology and plan will be to d/c plavix and start 3% hypertonic saline. Family decision maker is scheduled to arrive tommorow from [place]. CCU Objective - Vital Signs / Intake & Output Vital Signs (Last 4 hours): Vital Signs Temp Pulse Resp BP Pulse Ox 07/11/16 09:49 181/85 H 07/11/16 08:00 100.4 F H 60 20 167/99 H 97 Intake and Output (Last 8hrs): Intake & Output 07/10/16 07/11/16 07/11/16 22:59 06:59 14:59 Intake Total 672 336 Output Total 500 450 Balance 172 -114 Intake: IV 672 336 Output: Gastric Amount 100 Right Nares 100 Urine 400 450 Urethral (Christie) 400 450 Other: # Bowel Movements 0 - Physical Exam Physical Exam Limitations: Positive for: Altered Mental Status Pupils: Positive for: PERRL Extroacular Muscles: Positive for: Other (Could not assess. ) Conjunctiva: Positive for: Normal Respiratory/Chest: Positive for: Clear to Auscultation, Other (Scattered apneic episodes can be observed however patient satting at 98% on NC. ). Negative for : Rales, Rhonchi Cardiovascular: Positive for: Regular Rate and Rhythm (paced rhythm), Normal S1 , S2 Abdomen: Positive for: Normal Bowel Sounds. Negative for: Distention Lower Extremity: Positive for: Edema, Capillary Refill < 2 s Neurological: Negative for: GCS=15 (gcs 4) Skin: Positive for: Warm, Dry Psychiatric: Negative for: Alert - Medications Active Medications: Active Medications Generic Name Dose Route Start Last Admin Trade Name Freq PRN Reason Stop Dose Admin Atorvastatin Calcium 20 mg 07/10/16 09:00 07/11/16 08:25 Lipitor PO 20 mg DAILY [place] Administration Digoxin 0.125 mg 07/10/16 09:00 07/11/16 08:25 Lanoxin IVP 0.125 mg DAILY [place] Administration Enalaprilat 1.25 mg 07/10/16 04:00 07/11/16 09:49 Vasotec Iv IV 1.25 mg Q6 [place] Administration Famotidine 20 mg 07/10/16 09:00 07/11/16 08:29 Pepcid IVP 20 mg Q12 [place] Administration Sodium Chloride 500 mls @ 500 mls/hr 07/11/16 11:40 Hypertonic Saline 3% IV 07/12/16 10:39 .Q1H [place] Isosorbide Mononitrate 30 mg 07/10/16 09:00 07/11/16 08:25 Imdur PO 30 mg DAILY [place] Administration Levothyroxine Sodium 35 mcg 07/10/16 06:30 07/11/16 05:44 Synthroid IVP 35 mcg DAILY@0630 [facility] Administration Montelukast Sodium 10 mg 07/10/16 09:00 07/11/16 08:26 Singulair NG 10 mg DAILY [place] Administration - Patient Studies Lab Studies: Lab Studies 07/11/16 07/11/16 07/11/16 Range/Units 09:20 05:00 04:25 WBC (4.8-10.8) K/uL RBC (4.40-5.90) Mil/uL Hgb (12.0-18.0) g/dL Hct (35.0-51.0) % MCV (80.0-94.0) fl MCH (27.0-31.0) pg MCHC (33.0-37.0) g/dL RDW (11.5-14.5) % Plt Count (130-400) K/uL MPV (7.2-11.7) fl Neut % (Auto) (50.0-75.0) % Lymph % (Auto) (20.0-40.0) % [place] % (Auto) (0.0-10.0) % Eos % (Auto) (0.0-4.0) % Baso % (Auto) (0.0-2.0) % Neut # (1.8-7.0) K/uL Lymph # (1.0-4.3) K/uL [place] # (0.0-0.8) K/uL Eos # (0.0-0.7) K/uL Baso # (0.0-0.2) K/uL Neutrophils % (Manual) (42-75) % Band Neutrophils % (0-2) % Lymphocytes % (Manual) (20-50) % Reactive Lymphs % (0-0) % Monocytes % (Manual) (0-10) % Platelet Estimate (NORMAL) Anisocytosis (manual) Macrocytosis (manual) Target Cells Tear Drop Cells Sodium (132-148) mmol/l Potassium (3.6-5.0) MMOL/L Chloride (98-107) mmol/L Carbon Dioxide (22-30) mmol/L Anion Gap (10-20) BUN (9-20) mg/dl Creatinine (0.8-1.5) mg/dL Est GFR ( Amer) Est GFR (Non-Af Amer) Random Glucose (75-110) mg/dL Serum Osmolality 305 H (272-300) mosm/kg Lactic Acid 3.0 H 2.5 H (0.7-2.1) MMOL/L Calcium (8.4-10.2) mg/dL Total Bilirubin (0.2-1.3) mg/dl AST (17-59) U/L ALT (21-72) U/L Alkaline Phosphatase (38-126) U/L Total Creatine Kinase (55-170) U/L Total Protein (6.3-8.2) G/DL Albumin (3.5-5.0) g/dL Globulin (2.2-3.9) gm/dL Albumin/Globulin Ratio (1.0-2.1) Free T4 1.62 (0.78-2.19) ng/dL Urine Color (YELLOW) Urine Clarity (Clear) Urine pH (5.0-8.0) Ur Specific [place] (1.003-1.030) Urine Protein (NEGATIVE) mg/dL Urine Glucose (UA) (Normal) mg/dL Urine Ketones (NEGATIVE) mg/dL Urine Blood (NEGATIVE) Urine Nitrate (NEGATIVE) Urine Bilirubin (NEGATIVE) Urine Urobilinogen (0.2-1.0) mg/dL Ur Leukocyte Esterase (Negative) Soraya/uL Urine RBC (Auto) (0-3) /hpf Urine Microscopic WBC (0-5) /hpf Ur Squamous Epith Cells (0-5) /hpf Uric Acid Crystals (<OCC) /hpf 07/11/16 07/11/16 07/10/16 Range/Units 04:25 04:25 23:19 WBC 16.2 H (4.8-10.8) K/uL RBC 5.70 (4.40-5.90) Mil/uL Hgb 15.7 (12.0-18.0) g/dL Hct 48.6 (35.0-51.0) % MCV 85.4 (80.0-94.0) fl MCH 27.5 (27.0-31.0) pg MCHC 32.3 L (33.0-37.0) g/dL RDW 15.9 H (11.5-14.5) % Plt Count 134 (130-400) K/uL MPV 9.9 (7.2-11.7) fl Neut % (Auto) 84.4 H (50.0-75.0) % Lymph % (Auto) 5.1 L (20.0-40.0) % [place] % (Auto) 10.0 (0.0-10.0) % Eos % (Auto) 0.1 (0.0-4.0) % Baso % (Auto) 0.4 (0.0-2.0) % Neut # 13.6 H (1.8-7.0) K/uL Lymph # 0.8 L (1.0-4.3) K/uL [place] # 1.6 H (0.0-0.8) K/uL Eos # 0.0 (0.0-0.7) K/uL Baso # 0.1 (0.0-0.2) K/uL Neutrophils % (Manual) 87 H (42-75) % Band Neutrophils % 1 (0-2) % Lymphocytes % (Manual) 6 L (20-50) % Reactive Lymphs % 2 H (0-0) % Monocytes % (Manual) 4 (0-10) % Platelet Estimate Normal (NORMAL) Anisocytosis (manual) Slight Macrocytosis (manual) Slight Target Cells Slight Tear Drop Cells Slight Sodium 143 (132-148) mmol/l Potassium 4.2 (3.6-5.0) MMOL/L Chloride 108 H (98-107) mmol/L Carbon Dioxide 21 L (22-30) mmol/L Anion Gap 18 (10-20) BUN 22 H (9-20) mg/dl Creatinine 1.2 (0.8-1.5) mg/dL Est GFR ( Amer) > 60 Est GFR (Non-Af Amer) 59 Random Glucose 129 H (75-110) mg/dL Serum Osmolality (272-300) mosm/kg Lactic Acid (0.7-2.1) MMOL/L Calcium 9.4 (8.4-10.2) mg/dL Total Bilirubin 1.5 H (0.2-1.3) mg/dl AST 38 (17-59) U/L ALT 14 L D (21-72) U/L Alkaline Phosphatase 92 (38-126) U/L Total Creatine Kinase 157 (55-170) U/L Total Protein 7.2 (6.3-8.2) G/DL Albumin 3.8 (3.5-5.0) g/dL Globulin 3.4 (2.2-3.9) gm/dL Albumin/Globulin Ratio 1.1 (1.0-2.1) Free T4 (0.78-2.19) ng/dL Urine Color Yellow (YELLOW) Urine Clarity Clear (Clear) Urine pH 5.0 (5.0-8.0) Ur Specific [place] 1.033 H (1.003-1.030) Urine Protein >=500 (NEGATIVE) mg/dL Urine Glucose (UA) Neg (Normal) mg/dL Urine Ketones Negative (NEGATIVE) mg/dL Urine Blood Large (NEGATIVE) Urine Nitrate Negative (NEGATIVE) Urine Bilirubin Negative (NEGATIVE) Urine Urobilinogen 0.2-1.0 (0.2-1.0) mg/dL Ur Leukocyte Esterase Neg (Negative) Soraya/uL Urine RBC (Auto) 39 H (0-3) /hpf Urine Microscopic WBC 8 H (0-5) /hpf Ur Squamous Epith Cells 1 (0-5) /hpf Uric Acid Crystals Occ H (<OCC) /hpf Laboratory Results - last 24 hr 07/10/16 07/11/16 07/11/16 23:19 04:25 04:25 WBC 16.2 H RBC 5.70 Hgb 15.7 Hct 48.6 MCV 85.4 MCH 27.5 MCHC 32.3 L RDW 15.9 H Plt Count 134 MPV 9.9 Neut % (Auto) 84.4 H Lymph % (Auto) 5.1 L [place] % (Auto) 10.0 Eos % (Auto) 0.1 Baso % (Auto) 0.4 Neut # 13.6 H Lymph # 0.8 L [place] # 1.6 H Eos # 0.0 Baso # 0.1 Neutrophils % (Manual) 87 H Band Neutrophils % 1 Lymphocytes % (Manual) 6 L Reactive Lymphs % 2 H Monocytes % (Manual) 4 Platelet Estimate Normal Anisocytosis (manual) Slight Macrocytosis (manual) Slight Target Cells Slight Tear Drop Cells Slight Sodium 143 Potassium 4.2 Chloride 108 H Carbon Dioxide 21 L Anion Gap 18 BUN 22 H Creatinine 1.2 Est GFR ( Amer) > 60 Est GFR (Non-Af Amer) 59 Random Glucose 129 H Serum Osmolality Lactic Acid Calcium 9.4 Total Bilirubin 1.5 H AST 38 ALT 14 L D Alkaline Phosphatase 92 Total Creatine Kinase 157 Total Protein 7.2 Albumin 3.8 Globulin 3.4 Albumin/Globulin Ratio 1.1 Free T4 Urine Color Yellow Urine Clarity Clear Urine pH 5.0 Ur Specific [place] 1.033 H Urine Protein >=500 Urine Glucose (UA) Neg Urine Ketones Negative Urine Blood Large Urine Nitrate Negative Urine Bilirubin Negative Urine Urobilinogen 0.2-1.0 Ur Leukocyte Esterase Neg Urine RBC (Auto) 39 H Urine Microscopic WBC 8 H Ur Squamous Epith Cells 1 Uric Acid Crystals Occ H 07/11/16 07/11/16 07/11/16 04:25 05:00 09:20 WBC RBC Hgb Hct MCV MCH MCHC RDW Plt Count MPV Neut % (Auto) Lymph % (Auto) [place] % (Auto) Eos % (Auto) Baso % (Auto) Neut # Lymph # [place] # Eos # Baso # Neutrophils % (Manual) Band Neutrophils % Lymphocytes % (Manual) Reactive Lymphs % Monocytes % (Manual) Platelet Estimate Anisocytosis (manual) Macrocytosis (manual) Target Cells Tear Drop Cells Sodium Potassium Chloride Carbon Dioxide Anion Gap BUN Creatinine Est GFR ( Amer) Est GFR (Non-Af Amer) Random Glucose Serum Osmolality 305 H Lactic Acid 2.5 H 3.0 H Calcium Total Bilirubin AST ALT Alkaline Phosphatase Total Creatine Kinase Total Protein Albumin Globulin Albumin/Globulin Ratio Free T4 1.62 Urine Color Urine Clarity Urine pH Ur Specific [place] Urine Protein Urine Glucose (UA) Urine Ketones Urine Blood Urine Nitrate Urine Bilirubin Urine Urobilinogen Ur Leukocyte Esterase Urine RBC (Auto) Urine Microscopic WBC Ur Squamous Epith Cells Uric Acid Crystals Fingerstick Blood Sugar Results: 103 Review of Systems - Review of Systems Systems not reviewed;Unavailable: Altered Mental Status Critical Care Progress Note - Nutrition Nutrition: Nutrition Category Date Time Status NPO Diet [DIET] Diets 07/09/16 Dinner Active Assessment/Plan - Assessment and Plan (Free Text) Assessment: 80 y/o male with PMH of HTN, HLD, CVA, Pacemaker brought in by EMS for AMS and unresponsiveness after a fall. As per friend who witnessed the incident , patient was in his regular state of health when he was about to try and move a table within her home. Before even lifting, patient "seemed to lose all his strength and passed out," falling backwards and striking the back of his head. During this time, patient was noted to have several seconds of left arm twitching follow by generalized stiffness. EMS arrived within 15 minutes and brought patient to ER where a code stroke was called. Initial CT head detected evidence of chronic infarct changes however subsequent CT head detected interval hemorrhagic conversion of a large left CJ territory infarct. Plan: Acute Left CVA, Hemorrhagic -Serial Head CTs between 07/09-07/10 revealed initial chronic infarct changes which then showed an acute infarct involving branches of the left anterior/left middle cerebral arteries -CT head today identifies interval hemorrhagic conversion of large left CJ territory infarct. The infarct and attendant edema exert a mass effect causing a left to right midline shift. -Discussed findings with neurology -Plavix discontinued -Hypertonic saline 3% bolus of 250cc administered and then continued at 30cc/hr -Will target serum sodium of 145-150 range -Follow serum lytes and serum osmolality -Repeat CT head 6 hours after last study to evaluate for any progressive shift or herniation -Continue HOB elevation and frequent neuro checks Hypertension -Will target SBP range of 140-150 -Vasotec 1.25mg IV Q6 Hyperlipidemia associated with chronic cerebrovascular disease -Atorvastatin 80mg HS GI Prophylaxis -Pepcid 20mg IV Q12h DVT Prophylaxis -SCDs <Junito Sampson - Last Filed: 07/11/16 17:03> CCU Subjective - Physician Review Subjective (Free Text): Attestation: Patient seen and examined at the bedside with Resident Dr. Lisbeth Zaragoza; and I agree with his outline of plans and management documented as discussed on AM rounds reflecting my review of all applicable clinical data, and participation in the care of the patient throughout the day in ICU; today, July 11, 2016. Discussed present clinical status and overall poor prognosis with family members and nephew with decision-making capability as deemed by other family members has stated request for DNI and understands the implication of this order. Orders placed onto chart for DNI and will discuss feasibility for DNR as well.
[2016-07-11] MEDS ORDERED: EnalaprilAT 1.25 mg/ml Inj IVP STA (13:16)
[2016-07-11] MEDS: Sodium Chloride 3% 500 ML IV SCH ×2 (13:35→21:59)
--- NOTE | 2016-07-11 15:17 | RAD ---
HISTORY: fever COMPARISON: Comparison chest dated 07/09/2016 FINDINGS: LUNGS: In situ NGT, tip of which has not been included on this film though distal aspect does lie below EG junction. Mild central pulmonary vascular congestive changes appears slightly improved. There also appears to be basilar atelectasis and or infiltrate with small effusion. Questionable small left effusion PLEURA: No apparent pneumothorax apparent. CARDIOVASCULAR: Heart size unchanged. Multi lead pacemaker -defibrillator also unchanged OSSEOUS STRUCTURES: No significant abnormalities. VISUALIZED UPPER ABDOMEN: Normal. OTHER FINDINGS: None. IMPRESSION: In situ NGT as above. Mild central pulmonary vascular congestive changes appears slightly improved. There also appears to be basilar atelectasis and or infiltrate with small effusion. Questionable small left effusion
--- NOTE | 2016-07-11 15:55 | CT ---
PROCEDURE: CT scan brain dated 07/11/2016. HISTORY: Intracranial hemorrhage. COMPARISON: Comparison made with CT scan 07/11/2016 at 0809 hours. TECHNIQUE: Axial computed tomography images were obtained through the head/brain without intravenous contrast. Radiation dose: Total exam DLP = 919.1 mGy-cm. This CT exam was performed using one or more of the following dose reduction techniques: Automated exposure control, adjustment of the mA and/or kV according to patient size, and/or use of iterative reconstruction technique. FINDINGS: HEMORRHAGE: Current study re- demonstrates hemorrhagic conversion large left CJ territory infarct. Hemorrhage is seen along the posterior genu of the corpus callosum. There is also small amount of hemorrhage seen layering in the dependent portions of the atria/occipital horns. There is surrounding mass effect with compression of the left cerebral hemisphere and left ventricle particularly the frontal horn. . There is also slight increased [id number] shift within the septum pellucidum shifted across midline to the right estimated at approximately 15 mm BRAIN: Old infarcts again noted left posterior frontoparietal, left posterior the temporal parietal watershed zone and right cerebellum. VENTRICLES: No evidence of obstructive hydrocephalus. CALVARIUM: No acute calvarial abnormalities. PARANASAL SINUSES: Unremarkable as visualized. No significant inflammatory changes. MASTOID AIR CELLS: Unremarkable as visualized. No inflammatory changes. OTHER FINDINGS: In situ NGT. Changes of bilateral cataract surgery. IMPRESSION: Current study re- demonstrates hemorrhagic conversion large left CJ territory infarct. Hemorrhage is seen along the posterior genu of the corpus callosum. There is also small amount of hemorrhage seen layering in the dependent portions of the atria/occipital horns. There is surrounding mass effect with compression of the left cerebral hemisphere and left ventricle particularly the frontal horn. . There is also slight increased [id number] shift within the septum pellucidum shifted across midline to the right estimated at approximately 15 mm No evidence of hydrocephalus. No change of previously noted scattered supratentorial and infratentorial chronic infarcts.
--- NOTE | 2016-07-11 16:45 | PN ---
DATE: 07/11/2016 The patient is currently lethargic. No reported ventricular tachycardia. PHYSICAL EXAMINATION: VITAL SIGNS: Blood pressure 117/88, heart rate 60, temperature 99.9 and respirations 20. HEENT: No pallor or icterus. NECK: No JVD. CHEST: Diminished breath sounds bilaterally. HEART: S1, S2 regular. EXTREMITIES: Trace leg edema. LABORATORY DATA: CBC: WBC 16.2, hemoglobin 15.7, hematocrit 38.6 and platelet count 134,000. SMA-7 : Sodium 143, potassium 4.2, chloride 108, CO2 of 21, glucose 129, BUN 22 and creatinine 1.2. Today 's head CT scan demonstrating hemorrhagic conversion of a large left anterior cerebral artery t erritory infarct. Hemorrhage seen the posterior genu of the corpus callosum. There is a small amoun t of hemorrhage seen layering in the dependent portion of the atria/occipital horns. The surrounding mass effect with compression of the left cerebral hemisphere and left ventricle, particularly at the frontal horn. There is also slight increase in left to right shift within the septum, the pellucidu m shifted across the midline to the right estimated at approximately 15 mm. ASSESSMENT: 1. Hemorrhagic left anterior cerebral artery infarct. 2. Cardiomyopathy. 3. Status post implantable cardioverter-defibrillator placement. 4. Atrial fibrillation. 5. Hypertension. 6. Hypothyroidism. RECOMMENDATIONS: Continue digoxin intravenously at 0.125 mg daily. Continue Lipitor at 80 mg once a day, Synthroid at 35 mcg intravenously daily and continue IV Vasotec at 1.25 mg q. 6 hours. Repeat d igoxin level in a.m. No antiplatelets or anticoagulations are justified at this time. Edin Douglas MD cc: [id number] TT: 07/11/2016 16:44:58 Confirmation # [id number] Dictation # [id number]
--- NOTE | 2016-07-11 17:01 | CP.PCM.PN ---
Subjective - Date & Time of Evaluation Date of Evaluation: 07/11/16 Time of Evaluation: 11:15 - Subjective Subjective: Mr. Talbot was seen and examined today at bedside in the ICU. He continued to be lethargic with little change in his level of function. The repeat CT scan was concerning for hemorrhagic conversion. I discussed starting hypertonic saline with the ICU staff and held antiplatelet agents. Objective - Vital Signs/Intake and Output Vital Signs (last 24 hours): Temp Pulse Resp BP Pulse Ox 98.8 F 60 20 178/81 H 98 07/11/16 16:00 07/11/16 16:08 07/11/16 16:00 07/11/16 16:08 07/11/16 16:08 Intake and Output: 07/11/16 07/11/16 06:59 18:59 Intake Total 504 250 Output Total 450 Balance 54 250 - Medications Medications: Current Medications Atorvastatin Calcium (Lipitor) 80 mg PO HS [facility] Digoxin (Lanoxin) 0.125 mg IVP DAILY [facility] Last Admin: 07/11/16 08:25 Dose: 0.125 mg Enalaprilat (Vasotec Iv) 1.25 mg IV Q6 [facility] Last Admin: 07/11/16 16:08 Dose: 1.25 mg Famotidine (Pepcid) 20 mg IVP Q12 [facility] Last Admin: 07/11/16 08:29 Dose: 20 mg Sodium Chloride (Hypertonic Saline 3%) 500 mls @ 30 mls/hr IV .[id number] [facility] Stop: 07/12/16 13:19 Last Admin: 07/11/16 13:35 Dose: 30 mls/hr Isosorbide Mononitrate (Imdur) 30 mg PO DAILY [facility] Last Admin: 07/11/16 08:25 Dose: 30 mg Levothyroxine Sodium (Synthroid) 35 mcg IVP DAILY@0630 [facility] Last Admin: 07/11/16 05:44 Dose: 35 mcg Montelukast Sodium (Singulair) 10 mg NG DAILY [facility] Last Admin: 07/11/16 08:26 Dose: 10 mg - Labs Labs: 07/11/16 04:25 07/11/16 04:25 PT 11.5 SECONDS (9.6-11.2) H 07/09/16 17:39 INR 1.11 (0.92-1.08) H 07/09/16 17:39 APTT 25.4 SECONDS (23.3-32.5) 07/09/16 17:39 - Head Exam Head Exam: ATRAUMATIC, NORMAL INSPECTION, NORMOCEPHALIC - Neck Exam Neck Exam: Full ROM, Normal Inspection. absent: Lymphadenopathy - Cardiovascular Exam Cardiovascular Exam: REGULAR RHYTHM, +S1, +S2. absent: Murmur - Neurological Exam Additional comments: Neurologically unchanged compared with previous exam. Assessment and Plan (1) Acute ischemic left MCA stroke Assessment & Plan: Hemorrhagic transformation appears to have occured and there is subfalcine herniation. Will start 3% at 30 mL/hr after a bolus of 250 mL and maintain serum sodium in the 145-[address] head in 12 hours to evaluate. Status: Acute
[2016-07-11 17:26] LABS: BLOOD UREA NITROGEN 24 mg/dl (9-20); CALCIUM 8.9 mg/dL (8.4-10.2); CARBON DIOXIDE 23 mmol/L (22-30); CHLORIDE 110 mmol/L (98-107); GFR AFRICAN-AMERICAN > 60; GLUCOSE,RANDOM 145 mg/dL (75-110); POTASSIUM 3.9 MMOL/L (3.6-5.0); SODIUM 145 mmol/l (132-148)
[2016-07-11] MEDS ORDERED: Labetalol 5mg/ml (4ml) ONE (17:56)
[2016-07-11] MEDS: Labetalol 5mg/ml (4ml) IVP PRN (18:08)
--- NOTE | 2016-07-11 18:20 | CARD ---
APPROVED REPORT EXAM: Two-dimensional and M-mode echocardiogram with Doppler and color Doppler. Other Information Quality : AverageRhythm : Pacemaker INDICATION Peripheral Edema Surgery/Intervention Pacemaker: 2D DIMENSIONS IVSd1.15 (0.7-1.1cm)LVDd5.03 (3.9-5.9cm) LVOT Diameter2.00 (1.8-2.4cm)PWd0.64 (0.7-1.1cm) IVSs0.96 (0.8-1.2cm)LVDs4.31 (2.5-4.0cm) FS (%) 14.4 %PWs0.61 (0.8-1.2cm) M-Mode DIMENSIONS Left Atrium (MM)4.83 (2.5-4.0cm)IVSd0.83 (0.7-1.1cm) Aortic Root3.04 (2.2-3.7cm)LVDd6.29 (4.0-5.6cm) Aortic Cusp Exc.1.65 (1.5-2.0cm)PWd0.96 (0.7-1.1cm) IVSs0.76 cmFS (%) 14 % LVDs5.39 (2.0-3.8cm)PWs1.26 cm Mitral Valve E/A ratio0.0 TDI E/Lateral E'0.0E/Medial E'0.0 LEFT VENTRICLE The left ventricle is normal size. There is normal left ventricular wall thickness. The left ventricular function is low normal. The left ventricular ejection fraction is 50% There is normal LV segmental wall motion. Transmitral Doppler flow pattern is Grade I-abnormal relaxation pattern. No left ventricle thrombus noted on this study. There is no ventricular septal defect visualized. There is no left ventricular aneurysm. There is no mass noted in the left ventricle. RIGHT VENTRICLE The right ventricle is mildly to moderately dilated. There is normal right ventricular wall thickness. Systolic function is mildly reduced. ATRIA The left atrium size is normal. The right atrium size is normal. The interatrial septum is intact with no evidence for an atrial septal defect. AORTIC VALVE The aortic valve is normal in structure and function. No aortic regurgitation is present. There is no aortic valvular stenosis. There is no aortic valvular vegetation. MITRAL VALVE The mitral valve is normal in structure and function. There is no evidence of mitral valve prolapse. There is no mitral valve stenosis. There is no mitral valve regurgitation noted. TRICUSPID VALVE The tricuspid valve is normal in structure and function. There is no tricuspid valve regurgitation noted. There is no tricuspid valve prolapse or vegetation. There is no tricuspid valve stenosis. PULMONIC VALVE The pulmonary valve is normal in structure and function. There is no pulmonic valvular regurgitation. There is no pulmonic valvular stenosis. GREAT VESSELS The aortic root is normal in size. The ascending aorta is normal in size. The IVC is normal in size and collapses >50% with inspiration. PERICARDIAL EFFUSION The pericardium appears normal. There is no pleural effusion. <Conclusion> Technically Limited Portable Study LV/ RV not optimally visualized Low Normal LVEF 50% Mild RV hypokinesis/ RV enlargement
--- NOTE | 2016-07-11 18:57 | CARD ---
APPROVED REPORT EKG Measurement Heart [id number] <Conclusion> Ventricular-paced rhythm Abnormal ECG
[2016-07-11] MEDS: Piperacillin/Tazobact 3.375 GM in Sodium Chloride 0.9% 100 ML IVPB SCH (21:09)
[2016-07-11 21:38] LABS: BLOOD UREA NITROGEN 25 mg/dl (9-20); CARBON DIOXIDE 22 mmol/L (22-30); CHLORIDE 112 mmol/L (98-107); GFR AFRICAN-AMERICAN > 60; GLUCOSE,RANDOM 135 mg/dL (75-110); POTASSIUM 3.9 MMOL/L (3.6-5.0); SODIUM 145 mmol/l (132-148)
[2016-07-11] MEDS ORDERED: Chlorhexidine Gluconate 1 APPL/PKT TP ONE (21:43)
[2016-07-12] MEDS: Piperacillin/Tazobact 3.375 GM in Sodium Chloride 0.9% 100 ML IVPB SCH ×4 (04:09→21:00)
[2016-07-12] MEDS: EnalaprilAT 1.25 mg/ml Inj IV SCH ×2 (04:10→10:04)
[2016-07-12] MEDS: Levothyroxine 100 mcg (0.1 mg) Inj IVP SCH (06:09)
[2016-07-12] MEDS: Sodium Chloride 3% 500 ML IV SCH (06:10)
[2016-07-12] MEDS: Labetalol 5mg/ml (4ml) IVP PRN ×2 (06:12→12:09)
[2016-07-12 06:52] LABS: BASO % 0.2 % (0.0-2.0); EOS % 0.1 % (0.0-4.0); HEMATOCRIT 46.1 % (35.0-51.0); LYMPH # 0.8 K/uL (1.0-4.3); MEAN CELL VOLUME 86.6 fl (80.0-94.0); MEAN CORPUSCULAR HEMOGLOBIN 26.8 pg (27.0-31.0); MONO # 1.6 K/uL (0.0-0.8); MONO % 9.9 % (0.0-10.0); NEUT # 13.9 K/uL (1.8-7.0); NEUT % 84.8 % (50.0-75.0); NRBC % 0.1 % (0.0-0.0); RED CELL DISTRIBUTION WIDTH 16.8 % (11.5-14.5); WHITE BLOOD COUNT 16.4 K/uL (4.8-10.8)
[2016-07-12 07:05] LABS: BLOOD UREA NITROGEN 28 mg/dl (9-20); CALCIUM 8.9 mg/dL (8.4-10.2); CARBON DIOXIDE 24 mmol/L (22-30); CHLORIDE 115 mmol/L (98-107); GFR AFRICAN-AMERICAN > 60; GLUCOSE,RANDOM 127 mg/dL (75-110); POTASSIUM 3.8 MMOL/L (3.6-5.0); SODIUM 152 mmol/l (132-148)
[2016-07-12] MEDS: Digoxin 500 mcg/2ml (0.5 mg/2ml) Inj IVP SCH (08:22)
--- NOTE | 2016-07-12 11:39 | CP.PCM.PN ---
Subjective - Date & Time of Evaluation Date of Evaluation: 07/12/16 Time of Evaluation: 11:30 - Subjective Subjective: No fever at present noted to be coughoing during exam Pt's eyes are open however not verbally responsive- grimaces to pain NGT in place - strted on Tube feeding Objective - Vital Signs/Intake and Output Vital Signs (last 24 hours): Temp Pulse Resp BP Pulse Ox 98.9 F 67 29 H 138/73 97 07/12/16 07:41 07/12/16 10:00 07/12/16 07:41 07/12/16 10:04 07/12/16 07:41 Intake and Output: 07/12/16 07/12/16 06:59 18:59 Intake Total 730 120 Output Total 450 Balance 280 120 - Medications Medications: Current Medications Atorvastatin Calcium (Lipitor) 80 mg PO HS [facility] Last Admin: 07/11/16 21:12 Dose: 80 mg Digoxin (Lanoxin) 0.125 mg IVP DAILY [facility] Last Admin: 07/12/16 08:22 Dose: 0.125 mg Enalaprilat (Vasotec Iv) 1.25 mg IV Q6 [facility] Last Admin: 07/12/16 10:04 Dose: 1.25 mg Famotidine (Pepcid) 20 mg IVP Q12 [facility] Last Admin: 07/12/16 08:25 Dose: 20 mg Sodium Chloride (Hypertonic Saline 3%) 500 mls @ 30 mls/hr IV .[id number] [facility] Stop: 07/12/16 13:19 Last Admin: 07/12/16 06:10 Dose: Not Given Piperacillin Sod/Tazobactam (Sod 3.375 gm/ Sodium Chloride) 100 mls @ 100 mls/ hr IVPB Q6 [facility] Last Admin: 07/12/16 10:02 Dose: 100 mls/hr Isosorbide Mononitrate (Imdur) 30 mg PO DAILY [facility] Last Admin: 07/12/16 08:21 Dose: 30 mg Labetalol HCl (Trandate) 20 mg IVP Q4H PRN PRN Reason: Other Last Admin: 07/12/16 06:12 Dose: 20 mg Levothyroxine Sodium (Synthroid) 35 mcg IVP DAILY@0630 [facility] Last Admin: 07/12/16 06:09 Dose: 35 mcg Montelukast Sodium (Singulair) 10 mg NG DAILY [place] Last Admin: 07/12/16 08:23 Dose: 10 mg - Labs Labs: 07/12/16 05:30 07/12/16 05:30 PT 11.5 SECONDS (9.6-11.2) H 07/09/16 17:39 INR 1.11 (0.92-1.08) H 07/09/16 17:39 APTT 25.4 SECONDS (23.3-32.5) 07/09/16 17:39 - Constitutional Appears: No Acute Distress - Head Exam Head Exam: NORMAL INSPECTION, NORMOCEPHALIC - Eye Exam Eye Exam: Normal appearance, PERRL (sluggish) - ENT Exam ENT Exam: Mucous Membranes Dry, Normal External Ear Exam - Neck Exam Neck Exam: absent: Meningismus - Respiratory Exam Respiratory Exam: Rhonchi, NORMAL BREATHING PATTERN. absent: Wheezes, Respiratory Distress - Cardiovascular Exam Cardiovascular Exam: REGULAR RHYTHM, +S1, +S2 Additional comments: + Pacemaker - GI/Abdominal Exam GI & Abdominal Exam: Soft, Normal Bowel Sounds - Extremities Exam Extremities Exam: Normal Capillary Refill. absent: Pedal Edema - Neurological Exam Additional comments: eyes open however responds only to pain no voluntary movement - Psychiatric Exam Additional comments: unresponsive - Skin Skin Exam: Dry, Normal Color, Warm Assessment and Plan - Assessment and Plan (Free Text) Assessment: 80 years old male from [place], arrived 2 weeks on vacation with PMH of HTN, HLD Permanent Pacemaker in place and Left CVA, brought to ER for eval for AMS / unresponsiveness after fall . 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 On the day of admission he was in the room talking when he fell back hitting his head and becoming unresponsive. In the ED the patient had a BP of 220/120mmHg and was treated with Labetalol. Initial CT head showed old left CVA . Neurology was consulted - patient was not a candidate for tPA. At present nonverbal , not following any commands , maintaining his airway . 1. Acute Left CVA with hemorrhagic conversion repeat CT head showed large acute infarct involving anterior and left middle cerebral artery with edema and hemorrhagic conversion Neurology - Dr Orellana rec starting 3% NS with Serum Osm and Na monitoring d/c Plavix due to the hemorrhagic conversion Pt remains unresponsive though eyes are open maintain SBP 170 Neurochecks Q2 hours cont Statin Keep HOB elevated NGT in place - start feeding maintaining airway for now. Continue o2 via NC - family wants pt to be DNR/DNI ECHO : EF 50% start Tube feeding with Jevity 2.Accelerated Hypertension allow permissive hypertension SBP 170 IV Enalapril for BP elevated moire than 170 3. Suspected Aspiration Pneumonia ( POA) Pt has cough, fever and leukocytosis CXR : infiltrate vs Atelectasis started IV Zosyn 4. Azotemia/ dehydration Hold Lasix at present 5. Hypothyroidism on Synthroid TSH controlled 6. CHF chronic compensated systolic cardiology consulted continue digoxin IV hold Lasix Echo : EF 50% 7. Chronic Cerebro vascular disease on Lipitor was on Effient at home patient is allergic to ASA hold antiplatelets due to hemorrhagic conversion 8. Stress ulcer prophylaxis Pepcid 9. DVT Prophylaxis SCD d/c Lovenox due to hemorrhagic conversion
[2016-07-12] MEDS ORDERED: Magnesium Hydroxide Susp 30 ml UD PO PRN (12:56)
--- NOTE | 2016-07-12 15:05 | CT ---
PROCEDURE: CT HEAD WITHOUT CONTRAST. HISTORY: ff up hemorrhagic conversion COMPARISON: None available. TECHNIQUE: Axial computed tomography images were obtained through the head/brain without intravenous contrast. Radiation dose: Total exam DLP = 1427.83 mGy-cm. This CT exam was performed using one or more of the following dose reduction techniques: Automated exposure control, adjustment of the mA and/or kV according to patient size, and/or use of iterative reconstruction technique. FINDINGS: HEMORRHAGE: Re- demonstrated is hemorrhagic left CJ territory infarct. Of. There appears to be a slightly increased amount of hemorrhage along the of the corpus callosum with increased intraventricular hemorrhage. Persistent mass effect with overlying sulcal effacement involving most of the left frontal and us anterior parietal region as well as compression of the ventricle left ventricle particularly the left frontal horn. There is midline shift from [id number]-oh-sylen again noted. BRAIN: Chronic infarct changes in the left posterior frontoparietal and left posterior temporoparietal watershed zones and right cerebellum again noted. Chronic white matter ischemic changes also again seen. VENTRICLES: As above CALVARIUM: Unremarkable. PARANASAL SINUSES: Unremarkable as visualized. No significant inflammatory changes. MASTOID AIR CELLS: Unremarkable as visualized. No inflammatory changes. OTHER FINDINGS: None. IMPRESSION: The the large left anterior cerebral artery territory hemorrhagic infarct. Hemorrhage has increased slightly in the region the corpus callosum. Hemorrhage has also increased within the ventricular system. No evidence hydrocephalus. Persistent mass effect and mild midline shift as above. Chronic infarcts in the left posterior frontoparietal and left posterior the temporal parietal watershed zones as well as right cerebellum. Chronic white matter ischemic changes again noted
[2016-07-12] MEDS ORDERED: Chlorhexidine Gluconate 1 APPL/PKT TP ONE (15:48)
[2016-07-12] MEDS: Labetalol 5 mg/ml Inj 20ML IVP PRN (16:47)
--- NOTE | 2016-07-12 16:51 | PN ---
DATE: 07/12/2016 The patient is lethargic and does not follow verbal commands. He is in ventricular paced rhythm on t he monitor. PHYSICAL EXAMINATION: VITAL SIGNS: Blood pressure 182/109, heart rate 60, temperature 98.8 and respirations 28. HEENT: No pallor. NECK: No JVD. CHEST: Bilateral rhonchi. HEART: S1, S2 regular. EXTREMITIES: 1+ pitting edema. LABORATORY DATA: SMA-7: Sodium 152, potassium 3.8, chloride 115, CO2 24, glucose 127, BUN 28 and cr eatinine 1.1. CBC: WBC 16.4, hemoglobin 14.3, hematocrit 46.1 and platelet count 125,000. Head CT scan was repeated today, but the report is still pending. ASSESSMENT: 1. Uncontrolled hypertension. 2. Hemorrhagic left anterior cerebral artery territory infarct. 3. Cardiomyopathy. 4. Chronic atrial fibrillation. 5. Hypothyroidism. RECOMMENDATIONS: Continue current IV Zosyn at 3.375 grams q. 6 hours, Lanoxin 0.125 mg intravenousl y daily and Synthroid 75 mcg via nasogastric tube. Discontinue intravenous enalapril and start enala pril 10 mg twice a day via nasogastric tube. Edin Douglas MD cc: [id number] TT: 07/12/2016 16:50:41 Confirmation # [id number] Dictation # [id number]
--- NOTE | 2016-07-12 21:49 | CP.PCM.PN ---
Subjective - Date & Time of Evaluation Date of Evaluation: 07/12/16 Time of Evaluation: 15:20 - Subjective Subjective: Mr. Talbot was seen and examined today in the ICU, with his son and family at bedside. The patient continued to be relatively unresponsive with no improvement in his clinical condition. I discussed with his family the worsening CT scan of the head and the expected poor clinical outcome due to the extensive left hemispheric damage and hemorrhagic conversion. The preferred to have the patient be made comfortable and are not interested in any aggressive measures. Objective - Vital Signs/Intake and Output Vital Signs (last 24 hours): Temp Pulse Resp BP Pulse Ox 98.7 F 60 14 139/74 98 07/12/16 20:00 07/12/16 20:00 07/12/16 20:00 07/12/16 20:00 07/12/16 20:00 Intake and Output: 07/12/16 07/13/16 18:59 06:59 Intake Total 570 10 Output Total 1000 0 Balance -430 10 - Medications Medications: Current Medications Atorvastatin Calcium (Lipitor) 80 mg PO HS [facility] Last Admin: 07/12/16 21:01 Dose: 80 mg Digoxin (Lanoxin) 0.125 mg NG DAILY [facility] Enalapril Maleate (Vasotec) 10 mg PO BID [facility] Last Admin: 07/12/16 16:39 Dose: 10 mg Famotidine (Pepcid) 20 mg NG BID [facility] Last Admin: 07/12/16 16:53 Dose: 20 mg Piperacillin Sod/Tazobactam (Sod 3.375 gm/ Sodium Chloride) 100 mls @ 100 mls/ hr IVPB Q6 [facility] Last Admin: 07/12/16 21:00 Dose: 100 mls/hr Isosorbide Mononitrate (Imdur) 30 mg PO DAILY [facility] Last Admin: 07/12/16 08:21 Dose: 30 mg Labetalol HCl (Trandate) 20 mg IVP Q4H PRN PRN Reason: Other Last Admin: 07/12/16 16:47 Dose: 20 mg Levothyroxine Sodium (Synthroid) 75 mcg NG DAILY@0630 [facility] Magnesium Hydroxide (Milk Of Magnesia) 30 ml PO DAILY PRN PRN Reason: Constipation Montelukast Sodium (Singulair) 10 mg NG DAILY [facility] Last Admin: 07/12/16 08:23 Dose: 10 mg Morphine Sulfate (Morphine) 4 mg IVP Q4 PRN PRN Reason: Pain, moderate (4-7) - Labs Labs: 07/12/16 05:30 07/12/16 05:30 PT 11.5 SECONDS (9.6-11.2) H 07/09/16 17:39 INR 1.11 (0.92-1.08) H 07/09/16 17:39 APTT 25.4 SECONDS (23.3-32.5) 07/09/16 17:39 - Neurological Exam Additional comments: Neurologically unchanged compared with previous examination. Assessment and Plan (1) Acute ischemic left MCA stroke Assessment & Plan: Hemorrhagic conversion of the left MCA region continues to exhibit worsening midline shift with corresponding clinical picture. The patient's family requested comfort care. I recommend a hospice consult. Status: Acute
[2016-07-13] MEDS: Piperacillin/Tazobact 3.375 GM in Sodium Chloride 0.9% 100 ML IVPB SCH ×4 (04:11→22:14)
[2016-07-13] MEDS: Labetalol 5 mg/ml Inj 20ML IVP PRN ×2 (04:12→08:50)
[2016-07-13] MEDS: Levothyroxine 75 MCG TAB NG SCH (06:00)
[2016-07-13 08:14] LABS: BASO % 0.1 % (0.0-2.0); EOS % 0.1 % (0.0-4.0); HEMATOCRIT 46.2 % (35.0-51.0); LYMPH # 0.8 K/uL (1.0-4.3); LYMPH % 5.9 % (20.0-40.0); MEAN CORPUSCULAR HEMOGLOBIN 27.3 pg (27.0-31.0); MEAN CORPUSCULAR HGB CONC 31.7 g/dL (33.0-37.0); MEAN PLATELET VOLUME 9.9 fl (7.2-11.7); MONO # 1.2 K/uL (0.0-0.8); MONO % 9.4 % (0.0-10.0); NEUT # 11.1 K/uL (1.8-7.0); NEUT % 84.5 % (50.0-75.0); NRBC % 0.1 % (0.0-0.0); RED CELL DISTRIBUTION WIDTH 16.2 % (11.5-14.5); WHITE BLOOD COUNT 13.2 K/uL (4.8-10.8)
[2016-07-13] MEDS: Digoxin 125 mcg (0.125 mg) Tab NG SCH (08:27)
[2016-07-13 08:54] LABS: BLOOD UREA NITROGEN 34 mg/dl (9-20); CALCIUM 8.7 mg/dL (8.4-10.2); CARBON DIOXIDE 24 mmol/L (22-30); CHLORIDE 114 mmol/L (98-107); GFR AFRICAN-AMERICAN > 60; GLUCOSE,RANDOM 118 mg/dL (75-110); SODIUM 151 mmol/l (132-148)
[2016-07-13 08:56] LABS: POTASSIUM 3.2 MMOL/L (3.6-5.0)
[2016-07-13] MEDS ORDERED: Potassium Chloride 20 mEq/15 ml LIQ UD PO STA (09:47)
[2016-07-13] MEDS ORDERED: Potassium Chloride 20 mEq/15 ml LIQ UD PO ONE (10:00)
--- NOTE | 2016-07-13 12:16 | CP.PCM.PN ---
Subjective - Date & Time of Evaluation Date of Evaluation: 07/13/16 Time of Evaluation: 10:00 - Subjective Subjective: Pt remains unresponsive tolerating tube feeding still maintaining his airway however noted occ cough Family wants comfort care- will arrange for Hospice Objective - Vital Signs/Intake and Output Vital Signs (last 24 hours): Temp Pulse Resp BP Pulse Ox 98.6 F 60 13 155/86 H 98 07/13/16 12:00 07/13/16 12:00 07/13/16 12:00 07/13/16 12:00 07/13/16 12:00 Intake and Output: 07/13/16 07/13/16 06:59 18:59 Intake Total 630 100 Output Total 800 Balance -170 100 - Medications Medications: Current Medications Atorvastatin Calcium (Lipitor) 80 mg PO HS [facility] Last Admin: 07/12/16 21:01 Dose: 80 mg Digoxin (Lanoxin) 0.125 mg NG DAILY [facility] Last Admin: 07/13/16 08:27 Dose: 0.125 mg Enalapril Maleate (Vasotec) 10 mg PO BID [facility] Last Admin: 07/13/16 08:26 Dose: 10 mg Famotidine (Pepcid) 20 mg NG BID [facility] Last Admin: 07/13/16 08:27 Dose: 20 mg Piperacillin Sod/Tazobactam (Sod 3.375 gm/ Sodium Chloride) 100 mls @ 100 mls/ hr IVPB Q6 [facility] Last Admin: 07/13/16 04:11 Dose: 100 mls/hr Isosorbide Mononitrate (Imdur) 30 mg PO DAILY [facility] Last Admin: 07/13/16 08:26 Dose: 30 mg Labetalol HCl (Trandate) 20 mg IVP Q4H PRN PRN Reason: Other Last Admin: 07/13/16 04:12 Dose: 20 mg Levothyroxine Sodium (Synthroid) 75 mcg NG DAILY@0630 [facility] Last Admin: 07/13/16 06:00 Dose: 75 mcg Magnesium Hydroxide (Milk Of Magnesia) 30 ml PO DAILY PRN PRN Reason: Constipation Montelukast Sodium (Singulair) 10 mg NG DAILY [facility] Last Admin: 07/13/16 08:26 Dose: 10 mg Morphine Sulfate (Morphine) 4 mg IVP Q4 PRN PRN Reason: Pain, moderate (4-7) Last Admin: 07/13/16 08:27 Dose: 4 mg - Labs Labs: 07/13/16 05:30 07/13/16 05:30 PT 11.5 SECONDS (9.6-11.2) H 07/09/16 17:39 INR 1.11 (0.92-1.08) H 07/09/16 17:39 APTT 25.4 SECONDS (23.3-32.5) 07/09/16 17:39 - Constitutional Appears: No Acute Distress - Head Exam Head Exam: NORMAL INSPECTION, NORMOCEPHALIC - Eye Exam Eye Exam: Normal appearance, PERRL (sluggish) - ENT Exam ENT Exam: Mucous Membranes Dry, Normal External Ear Exam - Neck Exam Neck Exam: absent: Meningismus - Respiratory Exam Respiratory Exam: Rhonchi, NORMAL BREATHING PATTERN. absent: Wheezes, Respiratory Distress - Cardiovascular Exam Cardiovascular Exam: REGULAR RHYTHM, +S1, +S2 Additional comments: + Pacemaker - GI/Abdominal Exam GI & Abdominal Exam: Soft, Normal Bowel Sounds - Extremities Exam Extremities Exam: Normal Capillary Refill. 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 According to the hair or beauty salon assistant , he is normally alert walking and talking. On the day of admission he was in the room talking when he fell back hitting his head and becoming unresponsive. In the ED the patient had a BP of 220/120mmHg and was treated with Labetalol. Initial CT head showed old left CVA . Neurology was consulted - patient was not a candidate for tPA. At present nonverbal , not following any commands , maintaining his airway . 1. Acute Left CVA with hemorrhagic conversion repeat CT head showed large acute infarct involving anterior and left middle cerebral artery with edema and hemorrhagic conversion Neurology - Dr Orellana rec starting 3% NS with Serum Osm and Na monitoring d/c Plavix due to the hemorrhagic conversion Pt remains unresponsive Neurochecks Q2 hours cont Statin Keep HOB elevated NGT in place - start feeding maintaining airway for now. Continue o2 via NC - family wants pt to be DNR/DNI ECHO : EF 50% start Tube feeding with [facility] consult 2.Accelerated Hypertension Labetalol prn cont Imdur add Norvasc 3. Suspected Aspiration Pneumonia ( POA) Pt has cough, fever and leukocytosis CXR : infiltrate vs Atelectasis started IV Zosyn 4. Azotemia/ dehydration Hold Lasix at present 5. Hypothyroidism on Synthroid TSH controlled 6. CHF chronic compensated systolic cardiology consulted continue digoxin IV hold Lasix Echo : EF 50% 7. Chronic Cerebro vascular disease on Lipitor was on Effient at home patient is allergic to ASA hold antiplatelets due to hemorrhagic conversion 8. Stress ulcer prophylaxis Pepcid 9. DVT Prophylaxis SCD d/c Lovenox due to hemorrhagic conversion
--- NOTE | 2016-07-13 17:30 | PN ---
DATE: 07/13/2016 The patient is semi-comatose. PHYSICAL EXAMINATION: VITAL SIGNS: Blood pressure 159/86, heart rate 60, temperature 98.5, respirations 20. HEENT: Normocephalic. CHEST: Bilateral rhonchi. HEART: S1, S2 regular. ABDOMEN: Positive bowel sounds. EXTREMITIES: 1+ pitting edema. LABORATORIES: Hemoglobin and hematocrit 14.6 and 46.2, white count and platelet count are 13.2 and 1 22,000. SMA-7: Sodium 151, potassium 3.2, chloride 114, CO2 24, glucose 118, BUN 34, creatinine 1.1 . Yesterday's third head CT scan revealed the large left anterior cerebral artery territory hemorrhagic infarct. Hemorrhage has increased slightly in the region of the corpus callosum. Hemorrhage also i ncreased within the ventricular system, no evidence of hydrocephalus, persistent mass effect and midl ine shift. Chronic infarcts in the left posterior frontoparietal and left posterior temporoparietal watershed zone as well as right cerebellum. Chronic white matter ischemic changes. ASSESSMENT: 1. Cardiomyopathy. 2. Large left anterior cerebral artery hemorrhagic infarct with increasing hemorrhage and mass effec t with midline shift. 3. Hypernatremia. 4. Hypokalemia. RECOMMENDATIONS: Continue digoxin 0.125 mg daily via nasogastric tube, Lipitor at 80 mg once a day, morphine sulfate 4 mg intravenously q. 4 hours p.r.n., IV Zosyn 3.375 grams intravenously q. 6 hours, Synthroid 75 mcg once a day, Trandate 20 mg intravenously q. 4 hours p.r.n., Vasotec at 10 mg orally twice a day. The patient did receive potassium chloride, a total of 80 mEq oral solution via nasoga stric tube. Obtain a followup BMP in a.m. The digoxin level that was ordered yesterday was 0.5. Edin Douglas MD cc: [id number] TT: 07/13/2016 17:29:01 Confirmation # [id number] Dictation # [id number] en
[2016-07-14] MEDS: Piperacillin/Tazobact 3.375 GM in Sodium Chloride 0.9% 100 ML IVPB SCH ×4 (03:52→21:28)
[2016-07-14 05:56] LABS: HEMATOCRIT 48.8 % (35.0-51.0); MEAN CELL VOLUME 86.9 fl (80.0-94.0); MEAN CORPUSCULAR HEMOGLOBIN 27.2 pg (27.0-31.0); MEAN CORPUSCULAR HGB CONC 31.3 g/dL (33.0-37.0); RED CELL DISTRIBUTION WIDTH 16.5 % (11.5-14.5); WHITE BLOOD COUNT 12.5 K/uL (4.8-10.8)
[2016-07-14 06:11] LABS: BLOOD UREA NITROGEN 35 mg/dl (9-20); CALCIUM 8.7 mg/dL (8.4-10.2); CARBON DIOXIDE 26 mmol/L (22-30); CHLORIDE 115 mmol/L (98-107); GFR AFRICAN-AMERICAN > 60; GLUCOSE,RANDOM 125 mg/dL (75-110); POTASSIUM 3.9 MMOL/L (3.6-5.0); SODIUM 153 mmol/l (132-148)
[2016-07-14] MEDS: Levothyroxine 75 MCG TAB NG SCH (06:15)
[2016-07-14] MEDS: Digoxin 125 mcg (0.125 mg) Tab NG SCH (09:06)
--- NOTE | 2016-07-14 15:49 | CP.PCM.PN ---
Subjective - Date & Time of Evaluation Date of Evaluation: 07/14/16 Time of Evaluation: 12:00 - Subjective Subjective: Pt remains only minimally responsive to pain occ moaning noted Tolerating tube feeding no fever Family at bedside - discussed test results with Nephew Nader Soriano who is POA - he will bring in proof of POA in am He states that his Uncle on previous discussions , did not want to be Intubated , dicussed [facility] Placement and Hospice Care Objective - Vital Signs/Intake and Output Vital Signs (last 24 hours): Temp Pulse Resp BP Pulse Ox 98.4 F 60 20 150/90 98 07/14/16 12:13 07/14/16 12:13 07/14/16 12:13 07/14/16 12:13 07/14/16 12:13 Intake and Output: 07/14/16 07/14/16 06:59 18:59 Intake Total 860 360 Output Total 500 400 Balance 360 -40 - Medications Medications: Current Medications Amlodipine Besylate (Norvasc) 5 mg NG DAILY [facility] Last Admin: 07/14/16 09:06 Dose: 5 mg Atorvastatin Calcium (Lipitor) 80 mg PO HS [facility] Last Admin: 07/13/16 22:14 Dose: 80 mg Digoxin (Lanoxin) 0.125 mg NG DAILY [facility] Last Admin: 07/14/16 09:06 Dose: 0.125 mg Enalapril Maleate (Vasotec) 10 mg PO BID [facility] Last Admin: 07/14/16 09:07 Dose: 10 mg Famotidine (Pepcid) 20 mg NG BID [facility] Last Admin: 07/14/16 09:07 Dose: 20 mg Piperacillin Sod/Tazobactam (Sod 3.375 gm/ Sodium Chloride) 100 mls @ 100 mls/ hr IVPB Q6 [facility] Last Admin: 07/14/16 09:07 Dose: 100 mls/hr Isosorbide Mononitrate (Imdur) 30 mg PO DAILY [facility] Last Admin: 07/14/16 09:06 Dose: 30 mg Labetalol HCl (Trandate) 20 mg IVP Q4H PRN PRN Reason: Other Last Admin: 07/13/16 08:50 Dose: 20 mg Levothyroxine Sodium (Synthroid) 75 mcg NG DAILY@0630 [facility] Last Admin: 07/14/16 06:15 Dose: 75 mcg Magnesium Hydroxide (Milk Of Magnesia) 30 ml PO DAILY PRN PRN Reason: Constipation Montelukast Sodium (Singulair) 10 mg NG DAILY [facility] Last Admin: 07/14/16 09:07 Dose: 10 mg Morphine Sulfate (Morphine) 4 mg IVP Q4 PRN PRN Reason: Pain, moderate (4-7) Last Admin: 07/14/16 06:17 Dose: 4 mg - Labs Labs: 07/14/16 05:41 07/14/16 05:41 PT 11.5 SECONDS (9.6-11.2) H 07/09/16 17:39 INR 1.11 (0.92-1.08) H 07/09/16 17:39 APTT 25.4 SECONDS (23.3-32.5) 07/09/16 17:39 Assessment and Plan - Assessment and Plan (Free Text) Assessment: - Constitutional Appears: No Acute Distress - Head Exam Head Exam: NORMAL INSPECTION, NORMOCEPHALIC - Eye Exam Eye Exam: Normal appearance, PERRL (sluggish) - ENT Exam ENT Exam: Mucous Membranes Dry, Normal External Ear Exam - Neck Exam Neck Exam: absent: Meningismus - Respiratory Exam Respiratory Exam: Rhonchi, NORMAL BREATHING PATTERN. absent: Wheezes, Respiratory Distress - Cardiovascular Exam Cardiovascular Exam: REGULAR RHYTHM, +S1, +S2 Additional comments: + Pacemaker - GI/Abdominal Exam GI & Abdominal Exam: Soft, Normal Bowel Sounds - Extremities Exam Extremities Exam: Normal Capillary Refill. 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 According to the traffic survey technician , he is normally alert walking and talking. On the day of admission he was in the room talking when he fell back hitting his head and becoming unresponsive. In the ED the patient had a BP of 220/120mmHg and was treated with Labetalol. Initial CT head showed old left CVA . Neurology was consulted - patient was not a candidate for tPA. At present nonverbal , not following any commands , maintaining his airway . 1. Acute Left CVA with hemorrhagic conversion repeat CT head showed large acute infarct involving anterior and left middle cerebral artery with edema and hemorrhagic conversion Neurology - Dr Orellana rec starting 3% NS with Serum Osm and Na monitoring d/c Plavix due to the hemorrhagic conversion Pt remains unresponsive Neurochecks Q2 hours cont Statin Keep HOB elevated NGT in place - start feeding maintaining airway for now. Continue o2 via NC - family wants pt to be DNR/DNI ECHO : EF 50% Tube feeding with [facility] consult 2.Accelerated Hypertension Labetalol prn cont Imdur add Norvasc 3. Suspected Aspiration Pneumonia ( POA) Pt has cough, fever and leukocytosis CXR : infiltrate vs Atelectasis started IV Zosyn 4. Azotemia/ dehydration Hold Lasix at present 5. Hypothyroidism on Synthroid TSH controlled 6. CHF chronic compensated systolic cardiology consulted continue digoxin IV hold Lasix Echo : EF 50% 7. Chronic Cerebro vascular disease on Lipitor was on Effient at home patient is allergic to ASA hold antiplatelets due to hemorrhagic conversion 8. Stress ulcer prophylaxis Pepcid 9. DVT Prophylaxis SCD d/c Lovenox due to hemorrhagic conversion 10. Hypernatremia - Increase Free water per tube
[2016-07-14] MEDS ORDERED: Labetalol 5mg/ml (4ml) IVP PRN (16:30)
[2016-07-14] MEDS: Labetalol 5 mg/ml Inj 20ML IVP PRN (16:53)
--- NOTE | 2016-07-14 17:32 | PN ---
DATE: 07/14/2016 SUBJECTIVE: The patient is semi-comatose, no reported seizures. PHYSICAL EXAMINATION: VITAL SIGNS: Blood pressure 177/96, heart rate , temperature 98.6, respirations 28. HEENT: No pallor or icterus. CHEST: Bilateral rhonchi and coarse crepitations, most likely secretions. HEART: S1, S2 regular. EXTREMITIES: 1+ pitting edema. LABORATORIES: Hemoglobin and hematocrit 15.3 and 48.8, white count and platelet count 12.5 and 120,0 00 respectively. SMA-7: Sodium 153, potassium 3.9, chloride 115, CO2 of 26, glucose 125, BUN 35, cr eatinine 1.2. ASSESSMENT: 1. Cardiomyopathy, status post implantable cardioverter-defibrillator placement. 2. Chronic atrial fibrillation. 3. Large left anterior cerebral artery hemorrhage infarct with increasing hemorrhage and mass effect with midline shift. 4. Hypernatremia. 5. Improving hypokalemia. RECOMMENDATIONS: Continue Imdur 30 mg once a day, digoxin 0.125 mg via nasogastric tube daily, Lipit or at 80 mg once a day, Norvasc at 5 mg once a day, Zosyn 3.375 grams intravenously q. 6 hours, Synt hroid 75 mcg once a day, Vasotec 10 mg twice a day via nasogastric tube. The case was discussed at [facility] with the patient's nephew, who requested the patient to be in hospice center near his residency . This will be relayed to the social service worker tomorrow. Edin Douglas MD cc: [id number] TT: 07/14/2016 17:32:08 Confirmation # [id number] Dictation # [id number] ln
[2016-07-15] MEDS: Labetalol 5 mg/ml Inj 20ML IVP PRN ×2 (01:30→06:30)
[2016-07-15] MEDS: Piperacillin/Tazobact 3.375 GM in Sodium Chloride 0.9% 100 ML IVPB SCH ×4 (04:10→21:56)
[2016-07-15 05:30] LABS: HEMATOCRIT 46.9 % (35.0-51.0); MEAN CELL VOLUME 87.3 fl (80.0-94.0); MEAN CORPUSCULAR HEMOGLOBIN 27.5 pg (27.0-31.0); MEAN CORPUSCULAR HGB CONC 31.5 g/dL (33.0-37.0); RED CELL DISTRIBUTION WIDTH 16.2 % (11.5-14.5); WHITE BLOOD COUNT 12.1 K/uL (4.8-10.8)
[2016-07-15 05:45] LABS: BLOOD UREA NITROGEN 32 mg/dl (9-20); CALCIUM 8.6 mg/dL (8.4-10.2); CARBON DIOXIDE 27 mmol/L (22-30); CHLORIDE 114 mmol/L (98-107); GFR AFRICAN-AMERICAN > 60; GLUCOSE,RANDOM 149 mg/dL (75-110); POTASSIUM 3.9 MMOL/L (3.6-5.0); SODIUM 150 mmol/l (132-148)
[2016-07-15] MEDS: Levothyroxine 75 MCG TAB NG SCH (06:09)
[2016-07-15] MEDS: Digoxin 125 mcg (0.125 mg) Tab NG SCH (08:00)
--- NOTE | 2016-07-15 15:33 | CP.PCM.PN ---
Subjective - Date & Time of Evaluation Date of Evaluation: 07/15/16 Time of Evaluation: 14:00 - Subjective Subjective: Unresponsive except to pain Tolerating tube feeding No fever maintaining his airway Family now does not want Hospice and wants to go ahead with PEG placement Objective - Vital Signs/Intake and Output Vital Signs (last 24 hours): Temp Pulse Resp BP Pulse Ox 98.4 F 64 16 161/80 H 100 07/15/16 12:00 07/15/16 12:00 07/15/16 12:00 07/15/16 12:00 07/15/16 12:00 Intake and Output: 07/15/16 07/15/16 06:59 18:59 Intake Total 1220 Output Total 700 Balance 520 - Medications Medications: Current Medications Amlodipine Besylate (Norvasc) 5 mg NG DAILY [facility] Last Admin: 07/15/16 08:01 Dose: 5 mg Atorvastatin Calcium (Lipitor) 80 mg PO HS [facility] Last Admin: 07/14/16 21:27 Dose: 80 mg Digoxin (Lanoxin) 0.125 mg NG DAILY [facility] Last Admin: 07/15/16 08:00 Dose: 0.125 mg Enalapril Maleate (Vasotec) 10 mg PO BID [facility] Last Admin: 07/15/16 08:01 Dose: 10 mg Famotidine (Pepcid) 20 mg NG BID [facility] Last Admin: 07/15/16 08:01 Dose: 20 mg Piperacillin Sod/Tazobactam (Sod 3.375 gm/ Sodium Chloride) 100 mls @ 100 mls/ hr IVPB Q6 [facility] Last Admin: 07/15/16 09:08 Dose: 100 mls/hr Isosorbide Mononitrate (Imdur) 30 mg PO DAILY [facility] Last Admin: 07/15/16 08:00 Dose: 30 mg Labetalol HCl (Trandate) 20 mg IVP Q4H PRN PRN Reason: Other Last Admin: 07/15/16 06:30 Dose: 20 mg Levothyroxine Sodium (Synthroid) 75 mcg NG DAILY@0630 [facility] Last Admin: 07/15/16 06:09 Dose: 75 mcg Magnesium Hydroxide (Milk Of Magnesia) 30 ml PO DAILY PRN PRN Reason: Constipation Montelukast Sodium (Singulair) 10 mg NG DAILY [facility] Last Admin: 05/30/17 08:01 Dose: 10 mg Morphine Sulfate (Morphine) 4 mg IVP Q4 PRN PRN Reason: Pain, moderate (4-7) Last Admin: 07/14/16 06:17 Dose: 4 mg - Labs Labs: 07/15/16 04:20 07/15/16 04:20 PT 11.5 SECONDS (9.6-11.2) H 07/09/16 17:39 INR 1.11 (0.92-1.08) H 07/09/16 17:39 APTT 25.4 SECONDS (23.3-32.5) 07/09/16 17:39 - Assessment and Plan (Free Text) Assessment: - Constitutional Appears: No Acute Distress - Head Exam Head Exam: NORMAL INSPECTION, NORMOCEPHALIC - Eye Exam Eye Exam: Normal appearance, PERRL (sluggish) - ENT Exam ENT Exam: Mucous Membranes Dry, Normal External Ear Exam - Neck Exam Neck Exam: absent: Meningismus - Respiratory Exam Respiratory Exam: Rhonchi, NORMAL BREATHING PATTERN. absent: Wheezes, Respiratory Distress - Cardiovascular Exam Cardiovascular Exam: REGULAR RHYTHM, +S1, +S2 Additional comments: + Pacemaker - GI/Abdominal Exam GI & Abdominal Exam: Soft, Normal Bowel Sounds - Extremities Exam Extremities Exam: Normal Capillary Refill. 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 According to the informaticist , he is normally alert walking and talking. On the day of admission he was in the room talking when he fell back hitting his head and becoming unresponsive. In the ED the patient had a BP of 220/120mmHg and was treated with Labetalol. Initial CT head showed old left CVA . Neurology was consulted - patient was not a candidate for tPA. At present nonverbal , not following any commands , maintaining his airway . 1. Acute Left CVA with hemorrhagic conversion repeat CT head showed large acute infarct involving anterior and left middle cerebral artery with edema and hemorrhagic conversion Neurology - Dr Orellana Pt received 3% NS with Serum Osm and Na monitoring- now off d/c Plavix due to the hemorrhagic conversion Pt remains unresponsive - family said per pts previous wish - DNR/DNI Neurochecks Q2 hours cont Statin Keep HOB elevated NGT in place - started feeding and tolerating maintaining airway for now. Continue o2 via NC ECHO : EF 50% Tube feeding with [facility] Discussed poor prognosis w/ family - Hospice consulted- Jarocho met with family however pt's nephew changed his mind and would now want PEG placed and [facility] placement GI - Dr Montenegro consulted for PEG placement 2.Accelerated Hypertension Labetalol prn cont Imdur Increase Norvasc dose to [address] Sotelo 3. Suspected Aspiration Pneumonia ( POA) Pt has cough, fever and leukocytosis CXR : infiltrate vs Atelectasis started IV Zosyn 4. Azotemia/ dehydration Hold Lasix at present 5. Hypothyroidism on Synthroid TSH controlled 6. CHF chronic compensated systolic cardiology consulted continue digoxin I hold Lasix Echo : EF 50% 7. Chronic Cerebro vascular disease on Lipitor was on Effient at home patient is allergic to ASA hold antiplatelets due to hemorrhagic conversion 8. Stress ulcer prophylaxis Pepcid 9. DVT Prophylaxis SCD d/c Lovenox due to hemorrhagic conversion 10. Hypernatremia - Increase Free water per tube
[2016-07-15] MEDS ORDERED: Labetalol 5 mg/ml Inj 20ML IVP PRN (16:40)
--- NOTE | 2016-07-15 17:10 | PN ---
DATE: 07/15/2016 SUBJECTIVE: The patient is semicomatose. No report of ventricular arrhythmia. PHYSICAL EXAMINATION: VITAL SIGNS: Blood pressure 122/90, heart rate 62, temperature 98.3, respirations 20. HEENT: Normocephalic. CHEST: Bilateral rhonchi and central , most likely secretions. HEART: S1, S2 regular. ABDOMEN: Soft. EXTREMITIES: 1+ pitting edema. LABORATORIES: Hemoglobin and hematocrit 14.8 and 46.9. White count and platelet count are 12.1 and 107,000. There is a trend of declining platelet count. SMA-7: Sodium 150, potassium 3.9, chloride 115, CO2 27, glucose 149, BUN 32, creatinine 1.2. ASSESSMENT: 1. Large left anterior cerebral artery hemorrhagic infarct with increasing hemorrhage and mass effec t with midline shift. 2. Cardiomyopathy. 3. Chronic atrial fibrillation. 4. Status post implantable cardioverter-defibrillator placement. 5. Improving hyponatremia. 6. Corrected hypokalemia. RECOMMENDATIONS: Continue digoxin 0.125 mg daily via nasogastric tube, Lipitor 40 mg once a day, Nor vasc 10 mg once a day, Zosyn 3.375 grams intravenously q. 6 hours, Synthroid 75 mcg once a day, Vasot ec 10 mg twice a day via nasogastric tube, labetalol 20 mg intravenous q. 4 hours p.r.n. The patient has not really agreed to take for hospice. Edin Douglas MD cc: [id number] TT: 07/15/2016 17:09:47 Confirmation # [id number] Dictation # [id number]
[2016-07-16] MEDS: Piperacillin/Tazobact 3.375 GM in Sodium Chloride 0.9% 100 ML IVPB SCH ×4 (04:07→21:38)
[2016-07-16] MEDS: Levothyroxine 75 MCG TAB NG SCH (06:28)
[2016-07-16 07:40] LABS: HEMATOCRIT 49.4 % (35.0-51.0); MEAN CORPUSCULAR HEMOGLOBIN 27.2 pg (27.0-31.0); WHITE BLOOD COUNT 13.7 K/uL (4.8-10.8)
[2016-07-16 08:07] LABS: BLOOD UREA NITROGEN 31 mg/dl (9-20); CALCIUM 8.7 mg/dL (8.4-10.2); CARBON DIOXIDE 25 mmol/L (22-30); CHLORIDE 111 mmol/L (98-107); GFR AFRICAN-AMERICAN > 60; GLUCOSE,RANDOM 146 mg/dL (75-110); SODIUM 147 mmol/l (132-148)
[2016-07-16] MEDS: Digoxin 125 mcg (0.125 mg) Tab NG SCH (10:07)
--- NOTE | 2016-07-16 17:02 | PN ---
DATE: 07/16/2016 SUBJECTIVE: The patient is semi-comatose. PHYSICAL EXAMINATION: VITAL SIGNS: Blood pressure 164/83, heart rate 59, temperature 97.9, respiration 20. HEENT: No pallor. NECK: No JVD. CHEST: Bilateral rhonchi. HEART: S1, S2 regular. EXTREMITIES: Trace leg edema. LABORATORIES: Hemoglobin and hematocrit 15.8 and 49.4, white count and platelet count are 13.7 and 1 20,000 respectively. Today's BUN and creatinine are 31 and 1.0. Sodium has improved and normalized at 147, potassium is within normal limits at 4.0. ASSESSMENT: 1. Status post hemorrhagic infarct involving the left anterior cerebral artery territory with mass a ffect and midline shift. 2. Cardiomyopathy. 3. Chronic atrial fibrillation. 4. Corrected hypokalemia as well as hypernatremia. RECOMMENDATIONS: Continue current Imdur, Lanoxin, Lipitor, Norvasc, IV Zosyn. Continue Synthroid vi a nasogastric tube, p.r.n. IV Labetalol. Continue Vasotec 10 mg twice a day via nasogastric tube. T he patient and the family are planning to take the patient to the custodial by ____. The plan is to place get gastrostomy tube feeding prior to that and the patient can undergo this procedure from t cardiac point. Edin Douglas MD cc: [id number] TT: 07/16/2016 17:00:59 Confirmation # [id number] Dictation # [id number]
--- NOTE | 2016-07-16 17:15 | CP.PCM.PN ---
Subjective - Date & Time of Evaluation Date of Evaluation: 07/16/16 Time of Evaluation: 17:00 - Subjective Subjective: Patient was seen and examined bedside. Aphasic, unresponsive, does not follow any commands.opens eyes spontaneously , responsive to verbal stimuli Maintaining his airway with O2sat 98 % in RA . tolerating NGT feeding No acute issues overnight DNR / DNI as per POA Scheduled for peg placement tomorrow. Objective - Vital Signs/Intake and Output Vital Signs (last 24 hours): Temp Pulse Resp BP Pulse Ox 97.5 F L 59 L 20 136/78 98 07/16/16 16:13 07/16/16 16:13 07/16/16 16:13 07/16/16 16:13 07/16/16 16:13 Intake and Output: 07/16/16 07/16/16 06:59 18:59 Intake Total 1240 Output Total 1250 Balance -10 - Medications Medications: Current Medications Amlodipine Besylate (Norvasc) 10 mg NG DAILY [facility] Last Admin: 07/16/16 10:07 Dose: 10 mg Atorvastatin Calcium (Lipitor) 40 mg PO HS [facility] Last Admin: 07/15/16 21:55 Dose: 40 mg Digoxin (Lanoxin) 0.125 mg NG DAILY [facility] Last Admin: 07/16/16 10:07 Dose: 0.125 mg Enalapril Maleate (Vasotec) 10 mg PO BID [facility] Last Admin: 07/16/16 10:07 Dose: 10 mg Famotidine (Pepcid) 20 mg NG BID [facility] Last Admin: 07/16/16 10:06 Dose: 20 mg Piperacillin Sod/Tazobactam (Sod 3.375 gm/ Sodium Chloride) 100 mls @ 100 mls/ hr IVPB Q6 [facility] Last Admin: 07/16/16 10:09 Dose: 100 mls/hr Isosorbide Mononitrate (Imdur) 30 mg PO DAILY [facility] Last Admin: 07/16/16 10:06 Dose: 30 mg Labetalol HCl (Trandate) 10 mg IVP Q4H PRN PRN Reason: Other Last Admin: 07/16/16 04:10 Dose: 10 mg Levothyroxine Sodium (Synthroid) 75 mcg NG DAILY@0630 [facility] Last Admin: 07/16/16 06:28 Dose: 75 mcg Magnesium Hydroxide (Milk Of Magnesia) 30 ml PO DAILY PRN PRN Reason: Constipation Montelukast Sodium (Singulair) 10 mg NG DAILY [facility] Last Admin: 07/16/16 10:06 Dose: 10 mg - Labs Labs: 07/16/16 06:45 07/16/16 06:45 PT 11.5 SECONDS (9.6-11.2) H 07/09/16 17:39 INR 1.11 (0.92-1.08) H 07/09/16 17:39 APTT 25.4 SECONDS (23.3-32.5) 07/09/16 17:39 - Constitutional Appears: Non-toxic, No Acute Distress, Other (unresponsive, aphasic, does not follow commands, maintains his airway ) - Head Exam Head Exam: ATRAUMATIC, NORMOCEPHALIC - Eye Exam Eye Exam: PERRL - ENT Exam ENT Exam: Mucous Membranes Dry, Normal Exam Additional comments: NGT in place - Neck Exam Neck Exam: Normal Inspection - Respiratory Exam Respiratory Exam: Clear to Ausculation Bilateral, NORMAL BREATHING PATTERN. absent: Accessory Muscle Use, Prolonged Expiratory Phase, Rhonchi, Wheezes, Stridor - Cardiovascular Exam Cardiovascular Exam: REGULAR RHYTHM, RRR, +S1, +S2. absent: JVD - GI/Abdominal Exam GI & Abdominal Exam: Soft, Normal Bowel Sounds. absent: Distended, Guarding, Tenderness, Rebound - Rectal Exam Rectal Exam: Deferred - Extremities Exam Extremities Exam: Full ROM, Normal Capillary Refill, Normal Inspection. 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 On the day of admission he was in the room talking when he fell back hitting his head and becoming unresponsive. In the ED the patient had a BP of 220/120mmHg and was treated with Labetalol. Initial CT head showed old left CVA . Neurology was consulted - patient was not a candidate for tPA. Repeat CT head showed ne large acute infarct involving anterior and middle cerebral artery territory with edema and hemorrhagic conversion. Neurology was consulted. He received 3% Nacl for edema with no improvement in his neurological status At present nonverbal , not following any commands , maintaining his airway , opens eyes spontaneously. After discussion with family they agree for DNR/DNI status but would like to continue with NH placement and peg placement. Patient scheduled forpeg placement in AM 1. Acute Left CVA with hemorrhagic conversion unresponsive, non verbal, not following commands , maintaining his airway Repeat CT head showed large acute infarct involving anterior and left middle cerebral artery with edema and hemorrhagic conversion Neurology Dr Orellana was consulted for help with management Patient received 3% NS with no improvement of neurological status d/c Plavix, ASA due to the hemorrhagic conversion Patient has guarded prognosis . Discussed with POA . As per POA code status is DNR/DNI cont Statin Keep HOB elevated tolerating feeding via NGT for now. Scheduled for peg placement in AM and d/c to NH/KRYSTAL afterwards Maintaining his airway for now. Continue O2 via NC 2.Accelerated Hypertension Labetalol prn cont Imdur, norvasc and vasotec cardiology Dr. Douglas consulted 3. Suspected Aspiration Pneumonia ( POA) ever and leukocytosis CXR : infiltrate vs Atelectasis on IV Zosyn since 07/11/16 4. Azotemia/ dehydration Hold Lasix at present 5. Hypothyroidism on Synthroid TSH controlled 6. CHF chronic compensated systolic cardiology consulted continue digoxin hold Lasix Echo : EF 50% 7. Chronic Cerebro vascular disease on Lipitor was on Effient at home patient is allergic to ASA hold antiplatelets due to hemorrhagic conversion 8. Stress ulcer prophylaxis Pepcid 9. DVT Prophylaxis SCD d/c Lovenox due to hemorrhagic conversion 10. Hypernatremia improved Increased Free water per tube
[2016-07-17] MEDS: Piperacillin/Tazobact 3.375 GM in Sodium Chloride 0.9% 100 ML IVPB SCH ×4 (03:43→21:18)
[2016-07-17] MEDS: Levothyroxine 75 MCG TAB NG SCH (05:49)
[2016-07-17 06:38] LABS: HEMATOCRIT 48.4 % (35.0-51.0); MEAN CELL VOLUME 85.4 fl (80.0-94.0); MEAN CORPUSCULAR HEMOGLOBIN 27.3 pg (27.0-31.0); RED CELL DISTRIBUTION WIDTH 15.9 % (11.5-14.5); WHITE BLOOD COUNT 15.5 K/uL (4.8-10.8)
[2016-07-17 07:47] LABS: BLOOD UREA NITROGEN 35 mg/dl (9-20); CALCIUM 8.7 mg/dL (8.4-10.2); CARBON DIOXIDE 23 mmol/L (22-30); CHLORIDE 113 mmol/L (98-107); GFR AFRICAN-AMERICAN > 60; GLUCOSE,RANDOM 93 mg/dL (75-110); SODIUM 148 mmol/l (132-148)
[2016-07-17 07:49] LABS: POTASSIUM 4.5 MMOL/L (3.6-5.0)
--- NOTE | 2016-07-17 08:42 | CON ---
DATE: 07/15/2016 REFERRING PHYSICIAN: Dr. Cross and Dr. Arias. REASON FOR CONSULTATION: Dysphagia, mental status changes, PEG tube insertion. HISTORY OF PRESENT ILLNESS: This is a 80-year-old man essentially brought in for altered mental stat us. Essentially , , in place. Essentially on day of admission was unresponsive and now has not regained his baseline neuro status. Cannot tolerate oral diet and therefore GI is called for PEG tube insertion. The patient cannot give a history so it is obtained via the chart, staff an d the patient's family present at the bedside. PAST MEDICAL HISTORY: As above. MEDICATIONS: Have been reviewed. REVIEW OF SYSTEMS: All systems have been obtained. PHYSICAL EXAMINATION: VITAL SIGNS: Here in the hospital grossly unremarkable. GENERAL: This is a pleasant, elderly-appearing male lying in bed, comfortable, in no apparent distre ss. HEAD: Normocephalic, atraumatic. EYES: Pupils equally reactive to light bilaterally. No conjunctival pallor or icterus. NECK: Supple, normal range of motion. No lymphadenopathy appreciated. LUNGS: Coarse breath sounds bilaterally. HEART: S1, S2. Regular rate and rhythm. No murmurs appreciated. ABDOMEN: Soft, nontender. Bowel sounds present. No rebound, no guarding. RECTAL: Deferred. EXTREMITIES: Pulses present bilaterally. SKIN: Warm, dry and intact. NEUROLOGIC: Alert and oriented x 1, responds to pain. LABORATORY DATA: Labs reviewed. WBC is 12.1, hemoglobin of 14.9, hematocrit 46.9. Potassium 3.9. ASSESSMENT AND PLAN: This is a 80-year-old male with mental status changes and dysphasia. Fine for feeding tube once POA is agreeable. Thank you for the consult. Abelardo Montenegro MD, PhD cc: [id number] TT: 07/16/2016 21:27:34 Confirmation # [id number] Dictation # [id number] 07/17/2016 03:38:29
[2016-07-17] MEDS: Digoxin 125 mcg (0.125 mg) Tab NG SCH (10:11)
[2016-07-17] MEDS ORDERED: ceFAZolin 1 GM in Sodium Chloride 0.9% 100 ML IVPB ONE (11:00)
--- NOTE | 2016-07-17 11:42 | CP.PCM.PN ---
Subjective - Date & Time of Evaluation Date of Evaluation: 07/17/16 Time of Evaluation: 12:00 - Subjective Subjective: Patient seen and examined. Unresponsive, non verbal, opens eyes spontaneously s/p Peg placement today Hemodynamically stable, maintaining his airway No acute issues overnight DNR/DNi waiting for KRYSTAL placement Objective - Vital Signs/Intake and Output Vital Signs (last 24 hours): Temp Pulse Resp BP Pulse Ox 98.7 F 60 18 128/64 98 07/17/16 11:32 07/17/16 11:32 07/17/16 11:32 07/17/16 11:32 07/17/16 11:32 Intake and Output: 07/17/16 07/17/16 06:59 18:59 Intake Total 1670 Output Total 2800 Balance -1130 - Medications Medications: Current Medications Amlodipine Besylate (Norvasc) 10 mg NG DAILY [facility] Last Admin: 07/17/16 10:10 Dose: 10 mg Atorvastatin Calcium (Lipitor) 40 mg PO HS [facility] Last Admin: 07/16/16 21:39 Dose: 40 mg Digoxin (Lanoxin) 0.125 mg NG DAILY [facility] Last Admin: 07/17/16 10:11 Dose: 0.125 mg Enalapril Maleate (Vasotec) 10 mg PO BID [facility] Last Admin: 07/17/16 10:09 Dose: 10 mg Famotidine (Pepcid) 20 mg NG BID [facility] Last Admin: 07/17/16 10:10 Dose: 20 mg Piperacillin Sod/Tazobactam (Sod 3.375 gm/ Sodium Chloride) 100 mls @ 100 mls/ hr IVPB Q6 [facility] Last Admin: 07/17/16 10:12 Dose: 100 mls/hr Cefazolin Sodium 1 gm/ Sodium (Chloride) 100 mls @ 100 mls/hr IVPB ONCE ONE Stop: 07/17/16 11:59 Last Admin: 07/17/16 11:24 Dose: 100 mls/hr Isosorbide Mononitrate (Imdur) 30 mg PO DAILY [facility] Last Admin: 07/17/16 10:10 Dose: 30 mg Labetalol HCl (Trandate) 10 mg IVP Q4H PRN PRN Reason: Other Last Admin: 07/16/16 04:10 Dose: 10 mg Levothyroxine Sodium (Synthroid) 75 mcg NG DAILY@0630 [facility] Last Admin: 07/17/16 05:49 Dose: 75 mcg Magnesium Hydroxide (Milk Of Magnesia) 30 ml PO DAILY PRN PRN Reason: Constipation Montelukast Sodium (Singulair) 10 mg NG DAILY [facility] Last Admin: 07/17/16 10:11 Dose: 10 mg - Labs Labs: 07/17/16 05:40 07/17/16 05:40 PT 13.1 SECONDS (9.6-11.2) H 07/17/16 05:40 INR 1.26 (0.92-1.08) H 07/17/16 05:40 APTT 25.4 SECONDS (23.3-32.5) 07/09/16 17:39 - Constitutional Appears: Non-toxic, Other (unresponsive, non verbal) - Head Exam Head Exam: ATRAUMATIC, NORMOCEPHALIC - Eye Exam Eye Exam: PERRL - ENT Exam ENT Exam: Mucous Membranes Dry, Normal Exam - Neck Exam Neck Exam: Full ROM, Normal Inspection - Respiratory Exam Respiratory Exam: Clear to Ausculation Bilateral, NORMAL BREATHING PATTERN. absent: Rhonchi, Wheezes - Cardiovascular Exam Cardiovascular Exam: REGULAR RHYTHM, +S1, +S2 ( ). absent: JVD - GI/Abdominal Exam GI & Abdominal Exam: Soft, Normal Bowel Sounds. absent: Distended, Guarding, Rebound Additional comments: peg in place - Rectal Exam Rectal Exam: Deferred - Extremities Exam Extremities Exam: Full ROM, Normal Capillary Refill, Normal Inspection. 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 On the day of admission he was in the room talking when he fell back hitting his head and becoming unresponsive. In the ED the patient had a BP of 220/120mmHg and was treated with Labetalol. Initial CT head showed old left CVA . Neurology was consulted - patient was not a candidate for tPA. Repeat CT head showed large acute infarct involving anterior and middle cerebral artery territory with edema and hemorrhagic conversion. Neurology was consulted. He received 3% NaCl for edema with no improvement in his neurological status At present nonverbal , not following any commands , maintaining his airway , opens eyes spontaneously. After discussion with family they agree for DNR/DNI status but would like to continue with NH placement and peg placement. s/p peg placement today 1. Acute Left CVA with hemorrhagic conversion unresponsive, non verbal, not following commands , maintaining his airway Repeat CT head showed large acute infarct involving anterior and left middle cerebral artery with edema and hemorrhagic conversion Neurology Dr Orellana was consulted for help with management Patient received 3% NS with no improvement of neurological status d/c Plavix, ASA due to the hemorrhagic conversion Patient has guarded prognosis . Discussed with POA . As per POA code status is DNR/DNI cont Statin Keep HOB elevated s/p peg placement today. Will resume feeding after 8 hours Maintaining his airway for now. Continue O2 via NC 2.Accelerated Hypertension Labetalol prn cont Imdur, norvasc and vasotec cardiology Dr. Douglas consulted 3. Suspected Aspiration Pneumonia ( POA) ever and leukocytosis CXR : infiltrate vs Atelectasis on IV Zosyn since 07/11/16 4. Azotemia/ dehydration Hold Lasix at present 5. Hypothyroidism on Synthroid TSH controlled 6. CHF chronic compensated systolic cardiology consulted continue digoxin hold Lasix Echo : EF 50% 7. Chronic Cerebro vascular disease on Lipitor was on Effient at home patient is allergic to ASA hold antiplatelets due to hemorrhagic conversion 8. Stress ulcer prophylaxis Pepcid 9. DVT Prophylaxis SCD d/c Lovenox due to hemorrhagic conversion 10. Hypernatremia improved Increased Free water per tube
[2016-07-17] MEDS ORDERED: Etomidate 20 mg/10ml Inj IV ONE (11:55)
[2016-07-17] MEDS ORDERED: Propofol 10 mg/ml Inj (20 ML) ONE (11:55)
[2016-07-17] MEDS ORDERED: ePHEDrine 50 mg/ml Inj ONE (11:57)
[2016-07-17] MEDS ORDERED: Lactated Ringer's 500 ML IV ONE (12:00)
[2016-07-17] MEDS ORDERED: Lactated Ringer's 1,000 ML IV SCH (12:22)
--- NOTE | 2016-07-17 14:05 | PN ---
DATE: 07/17/2016 SUBJECTIVE: The patient underwent gastrostomy tube placement today. He is currently in recovery demetrio m. No reported ventricular arrhythmia. He is hemodynamically stable. PHYSICAL EXAMINATION: VITAL SIGNS: Blood pressure 148/79, heart rate 59, temperature 98.4, respirations 18. HEENT: Normocephalic. CHEST: Diminished breath sounds over the bases. HEART: S1, S2 regular. EXTREMITIES: Trace leg edema. LABORATORIES: Hemoglobin and hematocrit 15.5 and 48.4. Platelet count and white count are 15.5 and 122,000. SMA-7: Sodium 148, potassium 4.5, chloride 113, CO2 23, glucose 93, BUN 35, creatinine 1.2 . ASSESSMENT: 1. Status post acute hemorrhagic infarct involving the left anterior cerebral artery territory with increasing hemorrhagic mass effect and with midline shift. 2. Cardiomyopathy. 3. Chronic atrial fibrillation. 4. Improved hypernatremia and hypokalemia. 5. Status post gastrostomy tube placement. RECOMMENDATIONS: Continue current digoxin 0.125 mg daily, Lipitor 20 mg once a day, Norvasc 10 mg on ce a day, Synthroid 75 mcg once a day, Vasotec at 10 mg twice a day. Obtain 12-lead EKG as well as a follow up digoxin level. Edin Douglas MD cc: [id number] TT: 07/17/2016 14:04:17 Confirmation # [id number] Dictation # [id number] donna
[2016-07-17] MEDS: Sodium Chloride 0.45% 1,000 ML IV SCH (18:48)
[2016-07-18] MEDS: Piperacillin/Tazobact 3.375 GM in Sodium Chloride 0.9% 100 ML IVPB SCH ×2 (03:59→09:04)
[2016-07-18] MEDS: Levothyroxine 75 MCG TAB NG SCH (06:16)
[2016-07-18] MEDS: Sodium Chloride 0.45% 1,000 ML IV SCH (06:20)
[2016-07-18 06:51] LABS: HEMATOCRIT 43.4 % (35.0-51.0); MEAN CELL VOLUME 85.2 fl (80.0-94.0); MEAN CORPUSCULAR HEMOGLOBIN 27.4 pg (27.0-31.0); MEAN CORPUSCULAR HGB CONC 32.1 g/dL (33.0-37.0); RED CELL DISTRIBUTION WIDTH 15.5 % (11.5-14.5); WHITE BLOOD COUNT 11.4 K/uL (4.8-10.8)
[2016-07-18 07:25] LABS: CALCIUM 8.2 mg/dL (8.4-10.2); POTASSIUM 4.1 MMOL/L (3.6-5.0)
[2016-07-18 08:10] VITALS: RESP 18
[2016-07-18 08:55] VITALS: PULSE 99
[2016-07-18] MEDS: Digoxin 125 mcg (0.125 mg) Tab NG SCH (08:55)
--- NOTE | 2016-07-18 09:04 | CARD ---
APPROVED REPORT EKG Measurement Heart [id number] <Conclusion> Ventricular-paced rhythm Biventricular pacemaker detected Abnormal ECG
--- NOTE | 2016-07-18 10:35 | RAD ---
PROCEDURE: CHEST RADIOGRAPH, 1 VIEW HISTORY: r/o infiltrate COMPARISON: 07/11/2016 FINDINGS: LUNGS: Examination limited due to oblique positioning. PLEURA: Probable small right pleural effusion. Right costophrenic angle obscured by monitoring equipment. No left pleural effusion. No pneumothorax. CARDIOVASCULAR: Permanent pacemaker. No congestive change. OSSEOUS STRUCTURES: No significant abnormalities. VISUALIZED UPPER ABDOMEN: Normal. OTHER FINDINGS: None. IMPRESSION: Limited examination. Probable small right pleural effusion. Permanent pacemaker.
--- NOTE | 2016-07-18 11:45 | CP.PCM.DIS ---
Provider - Provider Date of Admission: 07/09/16 21:43 Attending physician: Ronnie Sandoval Time Spent in preparation of Discharge (in minutes): 30 Diagnosis - Discharge Diagnosis (1) Acute encephalopathy Status: Acute Priority: High (2) Acute ischemic left MCA stroke Status: Acute (3) Altered mental status Status: Acute Hospital Course - Lab Results Lab Results: Micro Results 07/15/16 17:34 Nose MRSA Culture (Admit) - Final MRSA NOT DETECTED 07/10/16 09:22 Naris MRSA Culture (Admit) - Final MRSA NOT DETECTED Most Recent Lab Values WBC 11.4 K/uL (4.8-10.8) H 07/18/16 05:30 RBC 5.09 Mil/uL (4.40-5.90) 07/18/16 05:30 Hgb 13.9 g/dL (12.0-18.0) 07/18/16 05:30 Hct 43.4 % (35.0-51.0) 07/18/16 05:30 MCV 85.2 fl (80.0-94.0) 07/18/16 05:30 MCH 27.4 pg (27.0-31.0) 07/18/16 05:30 MCHC 32.1 g/dL (33.0-37.0) L 07/18/16 05:30 RDW 15.5 % (11.5-14.5) H 07/18/16 05:30 Plt Count 119 K/uL (130-400) L 07/18/16 05:30 MPV 9.9 fl (7.2-11.7) 07/13/16 05:30 Neut % (Auto) 84.5 % (50.0-75.0) H 07/13/16 05:30 Lymph % (Auto) 5.9 % (20.0-40.0) L 07/13/16 05:30 [place] % (Auto) 9.4 % (0.0-10.0) 07/13/16 05:30 Eos % (Auto) 0.1 % (0.0-4.0) 07/13/16 05:30 Baso % (Auto) 0.1 % (0.0-2.0) 07/13/16 05:30 Neut # 11.1 K/uL (1.8-7.0) H 07/13/16 05:30 Lymph # 0.8 K/uL (1.0-4.3) L 07/13/16 05:30 [place] # 1.2 K/uL (0.0-0.8) H 07/13/16 05:30 Eos # 0.0 K/uL (0.0-0.7) 07/13/16 05:30 Baso # 0.0 K/uL (0.0-0.2) 07/13/16 05:30 Neutrophils % (Manual) 87 % (42-75) H 07/11/16 04:25 Band Neutrophils % 1 % (0-2) 07/11/16 04:25 Lymphocytes % (Manual) 6 % (20-50) L 07/11/16 04:25 Reactive Lymphs % 2 % (0-0) H 07/11/16 04:25 Monocytes % (Manual) 4 % (0-10) 07/11/16 04:25 Platelet Estimate Normal (NORMAL) 07/11/16 04:25 Anisocytosis (manual) Slight 07/11/16 04:25 Macrocytosis (manual) Slight 07/11/16 04:25 Target Cells Slight 07/11/16 04:25 Tear Drop Cells Slight 07/11/16 04:25 PT 13.1 SECONDS (9.6-11.2) H 07/17/16 05:40 INR 1.26 (0.92-1.08) H 07/17/16 05:40 APTT 25.4 SECONDS (23.3-32.5) 07/09/16 17:39 pCO2 37 mm/Hg (35-45) 07/10/16 10:21 pO2 94 mm/Hg (80-100) 07/10/16 10:21 HCO3 24.8 mmol/L (21-28) 07/10/16 10:21 ABG pH 7.42 (7.35-7.45) 07/10/16 10:21 ABG Total CO2 25.1 mmol/L (22-28) 07/10/16 10:21 ABG O2 Saturation 98.6 % (95-98) H 07/10/16 10:21 ABG Base Excess -0.1 mmol/L (-2.0-3.0) 07/10/16 10:21 Alex Test Yes 05/25/17 10:21 ABG Potassium 4.1 mmol/L (3.6-5.2) 07/10/16 10:21 A-a O2 Difference 59.0 mm/Hg 07/10/16 10:21 Sodium 139.0 mmol/L (132-148) 07/10/16 10:21 Chloride 107.0 mmol/L (98-107) 07/10/16 10:21 Glucose 171 mg/dL (75-110) H 07/10/16 10:21 Lactate 2.5 mmol/L (0.7-2.1) H 07/10/16 10:21 Liter Flow 2 07/10/16 10:21 FiO2 28.0 % 07/10/16 10:21 Sodium 147 mmol/l (132-148) 07/18/16 05:30 Potassium 4.1 MMOL/L (3.6-5.0) 07/18/16 05:30 Chloride 113 mmol/L (98-107) H 07/18/16 05:30 Carbon Dioxide 24 mmol/L (22-30) 07/18/16 05:30 Anion Gap 14 (10-20) 07/18/16 05:30 BUN 49 mg/dl (9-20) H 07/18/16 05:30 Creatinine 1.4 mg/dL (0.8-1.5) 07/18/16 05:30 Est GFR ( Amer) 59 07/18/16 05:30 Est GFR (Non-Af Amer) 49 07/18/16 05:30 Random Glucose 139 mg/dL (75-110) H 07/18/16 05:30 Hemoglobin A1c 5.6 % (4.2-6.5) 07/09/16 17:39 Serum Osmolality 313 mosm/kg (272-300) H 07/12/16 06:30 Lactic Acid 3.0 MMOL/L (0.7-2.1) H 07/11/16 09:20 Calcium 8.2 mg/dL (8.4-10.2) L 07/18/16 05:30 Total Bilirubin 1.5 mg/dl (0.2-1.3) H 07/11/16 04:25 AST 38 U/L (17-59) 07/11/16 04:25 ALT 14 U/L (21-72) L D 07/11/16 04:25 Alkaline Phosphatase 92 U/L (38-126) 07/11/16 04:25 Total Creatine Kinase 157 U/L (55-170) 07/11/16 04:25 Troponin I 0.0150 ng/mL (0.00-0.120) 07/09/16 17:39 NT-Pro-B Natriuret Pep 4340 pg/ml (0-900) H 07/10/16 04:25 Total Protein 7.2 G/DL (6.3-8.2) 07/11/16 04:25 Albumin 3.8 g/dL (3.5-5.0) 07/11/16 04:25 Globulin 3.4 gm/dL (2.2-3.9) 07/11/16 04:25 Albumin/Globulin Ratio 1.1 (1.0-2.1) 07/11/16 04:25 Triglycerides 217 mg/DL (0-149) H 07/09/16 17:39 Cholesterol 209 mg/dL (0-199) H 07/09/16 17:39 LDL Cholesterol Direct 138 mg/dL (0-129) H 07/09/16 17:39 HDL Cholesterol 37 MG/DL (30-70) 07/09/16 17:39 Free T4 1.62 ng/dL (0.78-2.19) 07/11/16 05:00 TSH 3rd Generation 0.73 mIU/ML (0.46-4.68) 07/10/16 04:25 Arterial Blood Potassium 4.1 mmol/L (3.6-5.2) 07/10/16 10:21 Urine Color Yellow (YELLOW) 07/10/16 23:19 Urine Clarity Clear (Clear) 07/10/16 23:19 Urine pH 5.0 (5.0-8.0) 07/10/16 23:19 Ur Specific [place] 1.033 (1.003-1.030) H 07/10/16 23:19 Urine Protein >=500 mg/dL (NEGATIVE) 07/10/16 23:19 Urine Glucose (UA) Neg mg/dL (Normal) 07/10/16 23:19 Urine Ketones Negative mg/dL (NEGATIVE) 07/10/16 23:19 Urine Blood Large (NEGATIVE) 07/10/16 23:19 Urine Nitrate Negative (NEGATIVE) 07/10/16 23:19 Urine Bilirubin Negative (NEGATIVE) 07/10/16 23:19 Urine Urobilinogen 0.2-1.0 mg/dL (0.2-1.0) 07/10/16 23:19 Ur Leukocyte Esterase Neg [place]/uL (Negative) 07/10/16 23:19 Urine RBC (Auto) 39 /hpf (0-3) H 07/10/16 23:19 Urine Microscopic WBC 8 /hpf (0-5) H 07/10/16 23:19 Ur Squamous Epith Cells 1 /hpf (0-5) 07/10/16 23:19 Uric Acid Crystals Occ /hpf (<OCC) H 07/10/16 23:19 Digoxin 1.1 ng/mL (0.8-2.0) 07/17/16 15:00 Urine Opiates Screen Negative (NEGATIVE) 07/09/16 22:17 Urine Methadone Screen Negative (NEGATIVE) 07/09/16 22:17 Ur Barbiturates Screen Negative (NEGATIVE) 07/09/16 22:17 Ur Phencyclidine Scrn Negative (NEGATIVE) 07/09/16 22:17 Ur Amphetamines Screen Negative (NEGATIVE) 07/09/16 22:17 U Benzodiazepines Scrn Negative (NEGATIVE) 07/09/16 22:17 U Oth Cocaine Metabols Negative (NEGATIVE) 07/09/16 22:17 U Cannabinoids Screen Negative (NEGATIVE) 07/09/16 22:17 Alcohol, Quantitative < 10 mg/dl (0-10) 07/09/16 20:00 Blood Type A POSITIVE 07/09/16 18:48 Blood Type Confirm A POSITIVE 07/09/16 19:45 Antibody Screen Negative 07/09/16 18:48 BBK History Checked No verified bt 07/09/16 18:48 - Hospital Course Hospital Course: 80 years old male from [place], 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 On the day of admission he was in the room talking when he fell back hitting his head and becoming unresponsive. In the ED the patient had a BP of 220/120mmHg and was treated with Labetalol. Initial CT head showed old left CVA . Neurology was consulted - patient was not a candidate for tPA. Repeat CT head showed large acute infarct involving anterior and middle cerebral artery territory with edema and hemorrhagic conversion. Neurology was consulted. He received 3% NaCl for edema with no improvement in his neurological status At present nonverbal , not following any commands , maintaining his airway , opens eyes spontaneously. After discussion with family they agree for DNR/DNI status but would like to continue with NH placement and peg placement. s/p peg placement today . patient stable to be dc to NH 1. Acute Left CVA with hemorrhagic conversion unresponsive, non verbal, not following commands , maintaining his airway Repeat CT head showed large acute infarct involving anterior and left middle cerebral artery with edema and hemorrhagic conversion Neurology Dr Orellana was consulted for help with management Patient received 3% NS with no improvement of neurological status d/c Plavix, ASA due to the hemorrhagic conversion Patient has guarded prognosis . Discussed with POA . As per POA code status is DNR/DNI cont Statin Keep HOB elevated s/p peg placement today. Will resume feeding after 8 hours Maintaining his airway for now. Continue O2 via NC 2.Accelerated Hypertension Labetalol prn cont Imdur, norvasc and vasotec cardiology Dr. Douglas consulted 3. Suspected Aspiration Pneumonia ( POA) ever and leukocytosis CXR : infiltrate vs Atelectasis on IV Zosyn since 07/11/16 4. Azotemia/ dehydration Hold Lasix at present 5. Hypothyroidism on Synthroid TSH controlled 6. CHF chronic compensated systolic cardiology consulted continue digoxin hold Lasix Echo : EF 50% 7. Chronic Cerebro vascular disease on Lipitor was on Effient at home patient is allergic to ASA hold antiplatelets due to hemorrhagic conversion 8. Stress ulcer prophylaxis Pepcid 9. DVT Prophylaxis SCD d/c Lovenox due to hemorrhagic conversion 10. Hypernatremia improved Increased Free water per tube Discharge Exam - Head Exam Head Exam: ATRAUMATIC, NORMOCEPHALIC - Eye Exam Eye Exam: EOMI, Normal appearance, PERRL - ENT Exam ENT Exam: Mucous Membranes Moist, Normal Oropharynx - Respiratory Exam Respiratory Exam: Clear to PA & Lateral, NORMAL BREATHING PATTERN - Cardiovascular Exam Cardiovascular Exam: RRR, +S1, +S2 - GI/Abdominal Exam GI & Abdominal Exam: Soft. absent: Mass, Organomegaly, Tenderness - Extremities Exam Extremities exam: normal capillary refill, pedal pulses present - Back Exam Back exam: absent: CVA tenderness (L), CVA tenderness (R) Discharge Plan - Follow Up Plan Condition: STABLE Disposition: TRANSF TO SNF Instructions: Ischemic Stroke (DC), Ischemic Stroke (GEN) Additional Instructions: Needs total care, verbally non responsive, open eyes to verbal and tactile stimuli.needs suction prn, incontinent of stool, skin intact.GT w/ abdominal binder,Gt flush w/ free water 200cc every 6 hrs. Referrals: Edin Douglas MD [Staff Provider] - Abelardo Montenegro MD, PhD [Staff Provider] - Chele Orellana MD [Medical Doctor] -
[2016-07-18 12:21] VITALS: BP 123/65; PULSE 60; TEMP 97.1; O2SAT 96
--- NOTE | 2016-07-18 14:01 | CP.PCM.PN ---
Subjective - Date & Time of Evaluation Date of Evaluation: 07/18/16 Time of Evaluation: 14:00 - Subjective Subjective: doing well post peg Objective - Vital Signs/Intake and Output Vital Signs (last 24 hours): Temp Pulse Resp BP Pulse Ox 97.1 F L 60 18 123/65 96 07/18/16 12:00 07/18/16 12:00 07/18/16 12:00 07/18/16 12:00 07/18/16 12:00 Intake and Output: 07/18/16 07/18/16 06:59 18:59 Intake Total 1605 Output Total 600 Balance 1005 - Medications Medications: Current Medications Amlodipine Besylate (Norvasc) 10 mg NG DAILY [facility] Last Admin: 07/18/16 08:53 Dose: 10 mg Atorvastatin Calcium (Lipitor) 40 mg PO HS [facility] Last Admin: 07/17/16 21:19 Dose: 40 mg Digoxin (Lanoxin) 0.125 mg NG DAILY [facility] Last Admin: 07/18/16 08:55 Dose: 0.125 mg Enalapril Maleate (Vasotec) 10 mg PO BID [facility] Last Admin: 07/18/16 08:54 Dose: 10 mg Famotidine (Pepcid) 20 mg NG BID [facility] Last Admin: 07/18/16 08:53 Dose: 20 mg Piperacillin Sod/Tazobactam (Sod 3.375 gm/ Sodium Chloride) 100 mls @ 100 mls/ hr IVPB Q6 [facility] Last Admin: 07/18/16 09:04 Dose: 100 mls/hr Sodium Chloride (Sodium Chloride 0.45%) 1,000 mls @ 80 mls/hr IV .[id number] [facility] Stop: 07/18/16 17:04 Last Admin: 07/18/16 06:20 Dose: Not Given Isosorbide Mononitrate (Imdur) 30 mg PO DAILY [facility] Last Admin: 07/18/16 08:53 Dose: 30 mg Labetalol HCl (Trandate) 10 mg IVP Q4H PRN PRN Reason: Other Last Admin: 07/16/16 04:10 Dose: 10 mg Levothyroxine Sodium (Synthroid) 75 mcg NG DAILY@0630 [facility] Last Admin: 07/18/16 06:16 Dose: 75 mcg Magnesium Hydroxide (Milk Of Magnesia) 30 ml PO DAILY PRN PRN Reason: Constipation Montelukast Sodium (Singulair) 10 mg NG DAILY [place] Last Admin: 07/18/16 08:54 Dose: 10 mg - Labs Labs: 07/18/16 05:30 07/18/16 05:30 PT 13.1 SECONDS (9.6-11.2) H 07/17/16 05:40 INR 1.26 (0.92-1.08) H 07/17/16 05:40 APTT 25.4 SECONDS (23.3-32.5) 07/09/16 17:39 - GI/Abdominal Exam GI & Abdominal Exam: Soft, Normal Bowel Sounds Assessment and Plan - Assessment and Plan (Free Text) Assessment: 80 yo male with dysphagia doing well post peg dc planning
--- NOTE | 2016-07-18 14:20 | PN ---
DATE: 07/18/2016 The patient is lethargic and does not appear to be in any respiratory distress. PHYSICAL EXAMINATION: VITAL SIGNS: Blood pressure 123/65, heart rate 60, temperature 97.1, respirations 18. HEENT: Normocephalic. CHEST: Diminished breath sounds over the bases. HEART: S1, S2 regular. EXTREMITIES: No edema. LABORATORIES: Hemoglobin and hematocrit 13.9 and 43.4, white count and platelet count are 11.4 and 1 19,000. SMA-7: Sodium 147, potassium 4.1, chloride 115, CO2 of 24, glucose 139, BUN 49, creatinine 1.4. ASSESSMENT: 1. Status post large hemorrhagic infarction involving the left anterior cerebral artery territory wi th mass effect and midline shift. 2. Chronic atrial fibrillation. 3. Cardiomyopathy, status post implantable cardioverter-defibrillator placement. 4. Thrombocytopenia. RECOMMENDATIONS: Continue current digoxin 0.125 mg via nasogastric tube daily and digoxin level done yesterday is 1.1. An EKG revealed ventricular paced rhythm at rate of 60 with underlying rhythm of atrial fibrillation. Continue Lipitor at 40 mg at bedtime, Norvasc at 10 mg daily, IV Zosyn at 3.375 grams intravenously q. 6 hours, Synthroid 75 mcg once a day, Vasotec 10 mg twice a day. Edin Douglas MD cc: [id number] TT: 07/18/2016 14:19:46 Confirmation # [id number] Dictation # [id number] tn
== END 2016-07-18 15:20 | DRG 64 ==
LOC: H.ER 17:11 → H.ERHOLD 21:43 → EDBD 21:43 → H.ICU/CCU 22:30 → H.TEL 07-15 15:42
PROVIDERS: ADMIT Internal Medicine; ATTEND Internal Medicine
PROC: 0DH673Z Insertion of Infusion Device into Stomach, Via Natural or Artificial Opening (ICD-10-PCS; 2016-07-09)
PROC: 3E0G76Z Introduction of Nutritional Substance into Upper GI, Via Natural or Artificial Opening (ICD-10-PCS; 2016-07-17)
PROC: 0DH63UZ Insertion of Feeding Device into Stomach, Percutaneous Approach (ICD-10-PCS; principal; 2016-07-17 12:00)
DX: I63.512 Cerebral infarction due to unspecified occlusion or stenosis of left middle cerebral artery (principal); J69.0 Pneumonitis due to inhalation of food and vomit; I62.9 Nontraumatic intracranial hemorrhage, unspecified; E87.0 Hyperosmolality and hypernatremia; I42.9 Cardiomyopathy, unspecified; I67.4 Hypertensive encephalopathy; I50.22 Chronic systolic (congestive) heart failure; D69.6 Thrombocytopenia, unspecified; I11.0 Hypertensive heart disease with heart failure; I48.2 Chronic atrial fibrillation; R47.01 Aphasia; E87.1 Hypo-osmolality and hyponatremia; R13.19 Other dysphagia; I63.522 Cerebral infarction due to unspecified occlusion or stenosis of left anterior cerebral artery; E86.0 Dehydration; E87.6 Hypokalemia; E03.9 Hypothyroidism, unspecified; E78.5 Hyperlipidemia, unspecified; R47.02 Dysphasia; Z66 Do not resuscitate; Z88.6 Allergy status to analgesic agent; Z95.0 Presence of cardiac pacemaker; Z87.891 Personal history of nicotine dependence